=== PATIENT | female | born 1935 | race Caucasian/White ===

== ENCOUNTER → 2017-06-23 | Outpatient (CLI) | payer OTHER ==
[~2017-06-23] MED LIST: ASPIR 8181 MG PO; CYCLOBENZAPRINE10 MG PO; LISINOPRIL10 MG PO; LOSARTAN-HCTZ1 EAC1 PO; MECLIZINE HCL25 MG PO; METHOCARBAMOL750 MG PO; NORCO 5-325 TA1 EACH PO; OXYBUTYNIN CHLOR5 MG PO; TERBINAFINE HC250 MG PO; TYLENOL # 31 EA PO; ULTRAM50 MG PO; VERAPAMIL ER120 MG PO; VESICARE5 MG PO; ZOLPIDEM TARTRAT5 MG PO
--- NOTE | 2017-06-24 19:26 | Diagnostic Imaging Report ---
Octreoscan (Somatostatin-Receptor Imaging) Reason for exam: Recent abdominal surgery; malignant neuroendocrine tumor of colon Radiopharmaceutical: Indium-111 pentetreotide 6.6 mCi Report: Total body and tomographic images of the abdomen were obtained at 6 hours post injection of the radiopharmaceutical. Total body as well as tomographic images of the chest were obtained at 24 hours. Distribution of tracer activity is physiologic throughout the body. No abnormal accumulation of tracer is seen. Impression: No scan evidence of neuroendocrine tumor or metastases. Signed by: Dr. Idalia Abreu M.D. on 06/24/2017 7:23 PM
== END ==
LOC: NM 08:39
PROVIDERS: ATTEND Internal Medicine Hematology & Oncology
DX: D3A.8 Other benign neuroendocrine tumors (principal)
CPT/HCPCS: 78804

== ENCOUNTER 2017-11-17 15:43 | Emergency (ER) | payer OTHER ==
[~2017-11-17] VITALS: Ht 167.6 cm; Wt 82.1 kg
[2017-11-17] MEDS ORDERED: HYDROCODONE/APAP 10MG-325MG TAB PO ONE (16:45)
--- NOTE | 2017-11-17 17:07 | Diagnostic Imaging Report ---
EXAM: CT left hip WITHOUT contrast INDICATION: \S\PAIN INJECTION 2 WEEKS AGO, NOW PAIN \[id number] \S\[id number] COMPARISON: Pelvic x-ray dated 08/28/2012 TECHNIQUE: Left hip were scanned utilizing a multidetector helical scanner without administration of IV contrast. Coronal and sagittal reformations were obtained. Routine protocol was performed. IV CONTRAST: None COMPLICATIONS: None RADIATION DOSE: Total DLP: 234.5 mGy*cm Estimated effective dose: (DLP x 0.015 x size factor) mSv CTDIvol has been reviewed. It is below the limits set by the Radiation Protocol Committee (RPC). FINDINGS: No acute fracture or dislocation of the left hip. Degenerative changes, marked by joint space narrowing and marginal osteophytosis. There is no fluid collection identified to suggest abscess formation. Partially imaged pelvic phleboliths. Hysterectomy. Posterior medial proximal thigh nonspecific subcutaneous fat stranding (series 3, image 78) without collection. IMPRESSION: 1. No acute fracture or dislocation of the left hip. 2. Degenerative changes. 3. No discrete fluid collection or abscess visualized. If clinical symptoms persist, consider obtaining left hip MRI for better evaluation. Signed by: Dr. Luciano Arce MD on 11/17/2017 5:03 PM
[2017-11-17] MEDS ORDERED: NAPROXEN250 MG PO (17:50)
== END 2017-11-17 18:19 | disposition home or self-care (01) ==
LOC: ER 15:43
DX: M25.552 Pain in left hip (principal); M16.12 Unilateral primary osteoarthritis, left hip; R42 Dizziness and giddiness
CPT/HCPCS: 99283

== ENCOUNTER 2018-10-11 20:11 | Emergency (ER) | payer MEDICARE, OTHER ==
[~2018-10-11] VITALS: Ht 167.6 cm; Wt 83.9 kg
[~2018-10-11 20:11] MED LIST changes: +NAPROXEN250 MG PO
--- OUTSIDE RECORDS SUMMARY | 2018-10-11 20:16 | XMS REPORT | Encounter Summary ---
Author Organization Unknown Address [address] [place] [address] Phone [phone] Care Team Providers Care Linen Checker Name Role Phone Dr. Jung Boyce 3 [phone] Jenny Gong MD 3 [phone] Ajcinto Renataronaadelaide 107 [phone] Reason for Visit hypertension; lab follow-up Instructions 1. Hypertensive renal disease 2. Chronic kidney disease stage 3 3. Tachycardia electrocardiogram 4. Iron deficiency anemia ferrous sulfate 325 mg (65 mg iron) tablet 5. Chronic constipation docusate sodium 100 mg capsule 6. Lumbar radiculopathy XR, lumbosacral spine, 2 or 3 view 7. Inflammation of sacroiliac joint Discussion Note: None recorded. Patient educational handouts: No information available. Plan of Care Reminders Provider Appointments Est Patient 07/06/2018 3:00PM Jung Boyce Jr, MD Lab None recorded. Referral None recorded. Procedures None recorded. Surgeries None recorded. Imaging Electrocardiogram 06/08/2018 [facility] XR, Lumbosacral Spine, 2 or 3 View 06/08/2018 [facility]) [facility] Medications Name Start Date amlodipine 10 mg tablet Take 1 tablet every day by oral route for 90 days. docusate sodium 100 mg capsule Take 1 capsule every day by oral route for 90 days. ferrous sulfate 325 mg (65 mg iron) tablet Take 1 tablet twice a day by oral route for 90 days. lisinopril 20 mg tablet Take 1 tablet every day by oral route for 90 days. omeprazole 20 mg capsule,delayed release Take 1 capsule every day by oral route for 90 days. Vesicare 10 mg tablet Take 1 tablet every day by oral route. Medications Administered None recorded. Vitals Height Weight BMI Blood Pressure 5 ft 4 in 160 lbs 27.5 kg/m2 140/76 mm[Hg] Lab Results Date Name Specimen Result Interpretation Description Value Range Status Address 06/01/2018 CBC W/ Auto Diff Wbc 6.86 x10*3/L 3.98-10.04 x10*3/L Final [facility] [address] [facility] Rbc 4.88 10*12/L 3.93-5.22 10*12/L Final [facility] [address] [facility] Hemoglobin 13.10 g/dL 11.20-15.70 g/dL Final [facility] [address] [facility] Hematocrit 41.2 % 34.1-44.9 % Final [facility] [address] [facility] Mcv 84.4 fL 80.0-100.0 fL Final [facility] [address] [facility] Mch 26.8 pg 25.6-32.2 pg Final [facility] [address] [facility] Low Mchc 31.8 g/dL 32.2-35.5 g/dL Final [facility] [address] [facility] High RDW-SD 52.9 fL 36.4-46.3 fL Final [facility]: [address] [place] [address] Platelet Count 246.0 k/uL 182.0-369.0 k/uL Final [facility]: [address] [facility] High Mpv 11.9 fL 7.5-11.5 fL Final [facility] [address] [facility] Neut% 59.4 % 34.0-71.1 % Final [facility]: [address] [place] [address] Lymph% 28.9 % 19.3-51.7 % Final [facility] [address] [facility] Mon% 6.6 % 4.7-12.5 % Final [facility] [address] [facility] Eos% 4.8 % 0.7-5.8 % Final [facility] [address] [facility] Baso% 0.3 % 0.1-1.2 % Final [facility]: [address] [place] [address] Neut# 4.1 x10*3/L 1.6-6.1 x10*3/L Final [facility]: [address] [place] Lymph# 2.0 x10*3/L 1.2-3.7 x10*3/L Final [facility]: [address] [place] Mon# 0.5 x10*3/L 0.2-0.9 x10*3/L Final [facility]: [address] [place] Eos# 0.33 x10*3/L 0.04-0.36 x10*3/L Final [facility]: [address] [place] Baso# 0.02 x10*3/L 0.01-0.08 x10*3/L Final [facility]: [address] [place] 06/01/2018 CMP, Serum or Plasma Alt 18 U/L 0-55 U/L Final [facility]: [address] [place] [address] Ast 20 U/L 5-34 U/L Final [facility]: [address] [place] [address] High Bun 21.2 mg/dL 9.8-20.1 mg/dL Final [facility]: [address] Alk Phos 78 unit/L 40-150 unit/L Final [facility] [address] [facility] Glucose 99 mg/dL 70-99 mg/dL Final [facility]: [address] Albumin 4.2 g/dL 3.5-5.0 g/dL Final [facility]: [address] [facility] High Creatinine 1.19 mg/dL 0.57-1.11 mg/dL Final [facility]: [address] [place] [address] ABNORMAL eGFR Non- 43 mL/min/1.73m2 Final [facility]: [address] [facility] Total Bilirubin 0.3 mg/dL 0.2-1.2 mg/dL Final [facility]: [address] ABNORMAL eGFR - 52 mL/min/1.73m2 Final [facility]: [address] Sodium 143 mEq/L 136-145 mEq/L Final [facility]: [address] [place] [address], [place] Potassium 4.6 mEq/L 3.5-5.1 mEq/L Final [facility]: [address] [place] [address], [place] Chloride 107 mmol/L 98-107 mmol/L Final [facility]: [address] Total Protein 7.8 g/dL 6.4-8.3 g/dL Final [facility]: [address] High Calcium 10.3 mg/dL 8.4-10.2 mg/dL Final [facility]: [address] Co2 26.3 mmol/L 23.0-31.0 mmol/L Final [facility]: [address] Anion Gap 10 calc Final [facility]: [address] 06/01/2018 Lipid Panel, Serum Low Hdl 38 mg/dL 40-60 mg/dL Final [facility]: [address] High Triglyceride 205 mg/dL 0-149 mg/dL Final [facility]: [address] VLDL Calc. 41 mg/dL Final [facility]: [address] cholesterol/HDL Ratio 5.1 mg/dL Final [facility] Laboratory: [address] non-HDL Cholesterol Calc. 154 mg/dL 0-160 mg/dL Final [facility]: [address] Cholesterol 192 mg/dL 0-199 mg/dL Final [facility]: [address] LDL Calc. 113 mg/dL 0-130 mg/dL Final [facility]: [address] [place] [address], [place] 06/01/2018 TSH, Serum or Plasma Tsh 1.100 uIU/mL 0.350-4.940 uIU/mL Final [facility]: [address] 06/01/2018 Drug Screen, Urine Please Note: Final [facility]: [address] Normal Amphetamines (1000 NG/mL Screen) negative Final [facility]: [address] [place] [address], [place] Normal Barbiturates negative Final [facility]: [address], [place] Normal Benzodiazepines negative Final [facility]: [address], [place] Normal Cocaine Metabolites negative Final [facility]: [address], [place] Normal Marijuana Metabolites (100 NG/mL Screen) negative Final [facility]: [address], [place] Normal Methadone negative Final [facility]: [address], [place] Normal Methaqualone negative Final [facility] Laboratory: [address], [place] Normal Opiates negative Final [facility]: [address], [place] Normal Phencyclidine negative Final [facility] Laboratory: [address], [place] Normal Propoxyphene negative Final [facility]: [address], [place] Comment Final [facility]: [address], [place] 06/01/2018 Urinalysis, Dipstick Urine Color Color light yellow [facility] ([facility]) Hobby: [address], [place] Urine Color Appearance clear [facility] ([facility]) Hobby: [address] [place] Urine Color Glucose negative [facility] ([facility]) [address]obby: [address] [place] Urine Color Bilirubin small [facility] ([facility]) Hobby: [address], [place] Urine Color Ketones trace [facility] ([facility]) [address]: [address], [place] Urine Color Specific [place] 1.030 [facility] ([facility]) Hobby: [address], [place] Urine Color Blood negative [facility] ([facility]) [address]: [address], [place] Urine Color PH 5.0 [facility] ([facility]) [address]: [address] [place] Urine Color Protein trace [facility] ([facility]) Hobby: [address] [place] Urine Color Urobilinogen 0.2 [facility] ([facility]) Hobby: [address], [place] Urine Color Nitrites negative [facility] ([facility]) Hobby: [address], [place] Urine Color Leukocytes negative [facility] ([facility]) [facility]: [address] [facility] [facility] Cbc No observation recorded. Allergies Code Code System Name Reaction Severity Status Onset Penicillins Active Problems Name Status Onset Date Source Bladder Muscle Dysfunction - Overactive Active 06/01/2018 Hypertensive Renal Disease Active 06/02/2018 Chronic Kidney Disease Stage 3 Active 06/02/2018 Iron Deficiency Anemia Active 06/08/2018 Inflammation of Sacroiliac Joint Active 06/08/2018 Procedures Date Name Performed by 04/19/2017 Cancer Surgery Information not available Hysterectomy (Total) Information not available 06/08/2018 Electrocardiogram [facility] ([facility]) [address] [facility] [address] [place] [address] ([address]) 06/08/2018 XR, Lumbosacral Spine, 2 or 3 View [facility] ([facility]) [phone] [employer] [employer] [facility] [address] [place] [address] (Work [address]) Vaccine List Vaccine Type influenza, unspecified formulation 02/04/2015 01/30/2016 01/18/2017 12/30/2017 Social History Smoking Status Never Smoker Past Encounters 06/08/2018 Hypertensive Renal Disease; Chronic Kidney Disease Stage 3; Tachycardia; Iron Deficiency Anemia; Chronic Constipation; Lumbar Radiculopathy; Inflammation of Sacroiliac Joint Jung Boyce Jr, MD: [address] [phone], Ph. 06/01/2018 Adult Health Examination; Body Mass Index 25-29 - Overweight; Overweight; Advance Directive Discussed with Patient; Depression Screening; At Risk for Falls; Hypertensive Urgency; Benign Essential Hypertension; [id number] Inhibitor Adverse Reaction; Mixed Hyperlipidemia; Screening for Cardiovascular System Disease; Gastroesophageal Reflux Disease; Chronic Pain Syndrome Jung Boyce Jr, MD: [address] [phone], [place]. History of Present Illness Hypertension Reported By: Patient HPI: Severity: mild. Onset/Timing: gradual onset. Alleviating Factors: relieved with rest, medication. Self Care: not under emotional stress, blood pressure goal: 130/80. Associated Symptoms: no shortness of breath, no fatigue, no decline in exercise capacity Generic HPI Template Reported By: Patient Notes: Patient presents for routine lab follow up. Currently without new complaint. Chronic lumbosacral back pain. Review of Systems Comprehensive General Adult ROS Reported By: Patient Constitutional: Constitutional: no significant weight gain, no significant weight loss Cardiovascular: Cardiovascular: no chest pain, no shortness of breath when walking Respiratory: Respiratory: no cough, no wheezing, no shortness of breath Endocrine: Endocrine: no fatigue Physical Exam Musculoskeletal and Joint Exam, Neurology Exam, Cardiology Exam Reported By: Patient Musculoskeletal System: Musculoskeletal System normal range of motion in all peripheral joints. Right Hip: no tenderness. Left Hip: no tenderness. Lumbar / Lumbosacral Spine normal lordosis, tenderness on palpation, spasms. Soft Tissue/Bursa: tender point none Constitutional: Weight: well-nourished. Ambulation: ambulates independently Head: Size/Trauma: normocephalic Mental Status: Orientation oriented to person, oriented to place, oriented to time. Mood/Affect: appropriate mood, appropriate affect. Language: has spontaneous speech. Memory: recent memory intact, remote memory intact. Fund of Knowledge: current events, past history Lungs: Auscultation: clear, no wheezing, no rales, no rhonchi. Respiratory Effort: unlabored. Chest Exam: no thoracic deformity, no chest wall tenderness Heart: Rate And Rhythm: RRR. Heart Sounds: normal S1, physiologically split S2, no rub, no gallop, no click. Systolic Murmur: not heard. Diastolic Murmur: not heard. Extremities: no cyanosis, no edema, no peripheral signs of emboli Spine: Back: normal curvature Constitutional: General Appearance: well-developed, appears stated age. Level of Distress: comfortable Peripheral Pulses: Pulses: full and equal in all extremities except if noted. Radial Pulse: normal Skin: Inspection and Palpation: warm and dry. Nails: no clubbing
--- OUTSIDE RECORDS SUMMARY | 2018-10-11 20:16 | XMS REPORT | Continuity of Care Document ---
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 05/29/[address] Cardiomegaly 10/07/2017 [facility] Atherosclerotic heart disease of [place] coronary artery without angina pectoris 10/07/2017 [facility] Other specified postprocedural states 10/07/2017 [facility] Arthritis Active Problem 10/07/2017 [facility] Dizziness Active Problem 10/07/2017 [facility] HTN - Hypertension Active Problem 10/07/2017 [facility], [facility] [address] Bilateral low back pain Active Problem 10/07/2017 [facility] Cancer of colon Active Problem 10/07/2017 [facility] Lower extremity numbness Active Problem 10/07/2017 [facility] Bladder incontinence Active Problem 10/07/2017 [facility] Final: Malignant neoplasm of cecum 04/19/2017 [facility] MALIGNANT NEOPLASM OF CECUM Active [facility] MALIGNANT NEOPLASM OF COLON, UNSPECIFIED Active [facility] MALIGNANT NEOPLASM OF OVERLAPPING SITES Active [facility] Medications Medication Details Route Status Patient Instructions Ordering Provider Order Date Source naproxen 250 mg oral tablet 250 mg=1 tab, PO, BID, X 7 day, # 14 tab, 0 Refill(s) Active 04/16/2017 [facility] acetaminophen 500 mg oral tablet 500 mg=1 tab, PO, Q6H, X 14 day, # 56 tab, 0 Refill(s) Active 04/16/2017 [facility] Ativan 0.5 mg, 0.25 mL, Route: IV, Drug form: INJ, Q8H, Dosing Weight 68, kg, PRN as needed for anxiety, Start date: 04/15/17 20:59:00 [employer], Duration: 30 day, Stop date: 05/15/17 20:58:00 CSTNotes: (Same as: Ativan) No Longer Active 04/16/2017 [facility] Robitussin 100 mg/5 mL oral liquid 100 mg, 5 mL, Route: PO, Q4H, Dosing Weight 68, kg, PRN as needed for congestion, Start date: 04/15/17 20:59:00 CE[employer]END[employer] HEL[employer], Duration: 30 day, Stop date: 05/15/17 20:58:00 [employer] HEL[employer] Inactive 04/16/2017 [facility] Robitussin 100 mg, 5 mL, Route: PO, Drug Form: LIQ, Dosing Weight 68, kg, Q4H, PRN Cough/Congestion, Start date: 04/15/17 20:52:00 CE[employer]END[employer] HEL[employer], Duration: 30 day, Stop date: 05/15/17 20:51:00 CSTNotes: (Same as: Robitussin) No Longer Active 04/16/2017 [facility] VESICARE 5 mg, Route: PO, Drug form: TAB, Daily, Dosing Weight 68.835, kg, Start date: 04/15/17 9:00:00 CE[employer]END[employer] HELPER, Duration: 30 day, Stop date: 05/14/17 9:00:00 CE[employer]END[employer] HELPER No Longer Active 04/15/2017 [facility] Ditropan XL 5 mg, 1 tab, Route: PO, Drug form: ERTAB, Daily, Start date: 04/15/17 9:00:00 CE[employer] TENDER HEL[employer], Duration: 30 day, Stop date: 05/14/17 9:00:00 CSTNotes: (Same as: Ditropan XL) "Do Not Crush" No Longer Active 04/15/2017 [facility] Streptococcus pneumoniae serotype 1 capsular antigen diphtheria [id number] protein conjugate vaccine / Streptococcus pneumoniae serotype 14 capsular antigen diphtheria [id number] protein conjugate vaccine / Streptococcus pneumoniae serotype 18C capsular antigen d 0.5 mL, Route: IM, Drug Form: INJ, Daily, Start date: 04/15/17 9:00:00 CE[employer] TENDER HELPER, Duration: 1 doses or times, Stop date: 04/15/17 9:00:00 CSTNotes: Shake well prior to use (Same as: Prevnar 13) No Longer Active 04/15/2017 [facility] Enoxaparin 40 mg, 0.4 mL, Route: SUB-Q, Drug form: INJ, [id number], Dosing Weight 68.835, kg, Start date: 04/15/17 4:06:00 CELL TENDER HELPER, Stop date: 05/14/17 4:06:00 CSTNotes: (Same as: Lovenox) Inactive 04/15/2017 [facility] gabapentin 300 MG Oral Capsule 300 mg, 1 cap, Route: PO, Drug form: CAP, Q8H, Dosing Weight 68.835, kg, (CrCl > 60 ml/min), Start date: 04/15/17 0:00:00 CELL TENDER HELPER, Duration: 30 day, Stop date: 05/14/17 16:00:00 CSTNotes: (Same as: Neurontin) Inactive 04/15/2017 [facility] Famotidine 20 mg, 1 tab, Route: PO, Drug form: TAB, Q24H, Dosing Weight 68.835, kg, Start date: 04/14/17 21:00:00 CELL TENDER HELPER, Duration: 30 day, Stop date: 05/13/17 21:00:00 CSTNotes: (Same as: Pepcid) No Longer Active 04/15/2017 [facility] Methocarbamol 500 mg, 5 mL, Route: IV, Drug form: INJ, Q6H, Dosing Weight 68.835, kg, Start date: 04/14/17 18:00:00 CELL TENDER HELPER, Duration: 30 day, Stop date: 05/14/17 12:00:00 CSTNotes: (Same as:Robaxin) No Longer Active 04/15/2017 [facility] Ofirmev 500 mg, 1 tab, Route: PO, Drug form: TAB, Q6H, Dosing Weight 68.835, kg, for > or=50 kg, Start date: 04/14/17 18:00:00 CELL TENDER HELPER, Stop date: 05/14/17 12:00:00 CSTNotes: Max acetaminophen 4000 mg/day (4 gm/day). (Same as: Tylenol Extra Strength) No Longer Active 04/15/2017 [facility] Entereg 12 mg, 1 cap, Route: PO, Drug form: CAP, BID, Dosing Weight 68.835, kg, Start date: 04/14/17 17:00:00 CELL TENDER HELPER, Duration: 7 day, Stop date: 04/21/17 9:00:00 CSTNotes: Same as: Entereg Maximum of 15 doses Alert Restricted medication Alvimopan (Entergen) order form must be completed prior to dispensing. No Longer Active 04/14/2017 [facility] Naproxen 250 mg, 1 tab, Route: PO, Drug form: TAB, BID, Dosing Weight 68.835, kg, Start date: 04/14/17 17:00:00 CELL TENDER HELPER, Duration: 30 day, Stop date: 05/14/17 9:00:00 CSTNotes: (Same as: Naprosyn) Take with food. No Longer Active 04/14/2017 [facility] glycopyrrolate (ANES) Route: IV, Drug form: INJ, ONCE, Stop date: 04/14/17 16:38:00 CELL TENDER HELPER Inactive 04/14/2017 [facility] metroNIDAZOLE (ANES) Route: IV, Drug form: INJ, ONCE, Stop date: 04/14/17 16:38:00 CELL TENDER HELPER Inactive 04/14/2017 [facility] neostigmine (ANES) Route: IV, Drug form: INJ, ONCE, Stop date: 04/14/17 16:38:00 CELL TENDER HELPER Inactive 04/14/2017 [facility] dexamethasone (ANES) Route: IV, Drug form: INJ, ONCE, Stop date: 04/14/17 16:20:00 CELL TENDER HELPER Inactive 04/14/2017 [facility] ondansetron (ANES) Route: IV, Drug form: INJ, ONCE, Stop date: 04/14/17 16:20:00 CELL TENDER HELPER Inactive 04/14/2017 [facility] acetaminophen (ANES) Route: IV, Drug form: INJ, ONCE, Stop date: 04/14/17 16:20:00 CELL TENDER HELPER Inactive 04/14/2017 [facility] Dilaudid 1 mg, 0.5 tab, Route: PO, Drug form: TAB, Q3H, Dosing Weight 68.835, kg, PRN Pain Score 7-10, Start date: 04/14/17 16:06:00 CELL TENDER HELPER, Duration: 30 day, Stop date: 05/14/17 16:05:00 CSTNotes: (Same as: Dil audid) No Longer Active 04/14/2017 [facility] Lidocaine 2 gm, 250 mL, Rate: Infuse as directed, Dosing Weight 68.835, kg, Route: IV, Total Volume: 250 mL, Start date: 04/14/17 16:06:00 CELL TENDER HELPER, Stop date: 04/14/17 17:00:00 CELL TENDER HELPER, Replace Every: 24 hrNotes: Remington ix final conc=8 mg/ml (Same as: Xylocaine Premix) Inactive 04/14/2017 [facility] Ondansetron 4 mg, 2 mL, Route: IVP, Drug form: INJ, Q6H, Dosing Weight 68.835, kg, PRN Nausea & Vomiting, Start date: 04/14/17 16:06:00 CELL TENDER HELPER, Duration: 30 day, Stop date: 05/14/17 16:05:00 CSTNotes: (Same as: Barrie) MEDICATION WASTE Product Size: 4 mg Product Wasted: ___ mg No Longer Active 04/14/2017 [facility] Diphenhydramine 25 mg, 1 tab, Route: PO, Drug form: TAB, Bedtime, Dosing Weight 68.835, kg, PRN Insomnia, Start date: 04/14/17 16:06:00 CELL TENDER HELPER, Duration: 30 day, Stop date: 05/14/17 16:05:00 CELL TENDER HELPER No Longer Active 04/14/2017 [facility] Calcium Chloride 0.0014 MEQ/ML / Potassium Chloride 0.004 MEQ/ML / Sodium Chloride 0.103 MEQ/ML / Sodium Lactate 0.028 MEQ/ML Injectable Solution 1,000 mL, Rate: 50 ml/hr, Infuse over: 20 hr, Route: IV, Dosing Weight 68.835 kg, Total Volume: 1,000, Start date: 04/14/17 16:06:00 CELL TENDER HELPER, Duration: 30 day, Stop date: 05/14/17 16:05:00 CELL TENDER HELPER, 1.82, m2 No Longer Active 04/14/2017 [facility] ePHEDrine (ANES) Route: IV, Drug form: INJ, ONCE, Stop date: 04/14/17 14:50:00 CELL TENDER HELPER Inactive 04/14/2017 [facility] propofol (ANES) Route: IV, Drug form: INJ, ONCE, Stop date: 04/14/17 14:35:00 CELL TENDER HELPER Inactive 04/14/2017 [facility] lidocaine (ANES) Route: IV, Drug form: INJ, ONCE, Stop date: 04/14/17 14:35:00 CELL TENDER HELPER Inactive 04/14/2017 [facility] ketAMINE (ANES) Route: IV, Drug form: INJ, ONCE, Stop date: 04/14/17 14:35:00 CELL TENDER HELPER Inactive 04/14/2017 [facility] ceFAZolin (ANES) Route: IV, Drug form: INJ, ONCE, Stop date: 04/14/17 14:35:00 CELL TENDER HELPER Inactive 04/14/2017 [facility] rocuronium (ANES) Route: IV, Drug form: INJ, ONCE, Stop date: 04/14/17 14:35:00 CELL TENDER HELPER Inactive 04/14/2017 [facility] gabapentin 300 MG Oral Capsule 300 mg, Route: PO, Drug form: CAP, ONCE, Dosing Weight 68.835, kg, Start date: 04/14/17 13:49:00 CELL TENDER HELPER, Stop date: 04/14/17 13:49:00 CELL TENDER HELPER Inactive 04/14/2017 [facility] ketAMINE (ANES) 10 mg Route: IV, Drug form: INJ, Start date: 04/14/17 13:46:00 CELL TENDER HELPER, Stop date: 04/14/17 14:46:00 CELL TENDER HELPER Inactive 04/14/2017 [facility] dexmedetomidine (ANES) 200 microgram Route: IV, Drug form: INJ, Start date: 04/14/17 13:36:00 CELL TENDER HELPER, Stop date: 04/14/17 14:36:00 CELL TENDER HELPER Inactive 04/14/2017 [facility] Sodium Chloride 0.9% IV (ANES) 1000 mL Route: IV, Total Volume: 1,000, Start date: 04/14/17 13:26:00 CELL TENDER HELPER, Stop date: 04/14/17 14:26:00 CELL TENDER HELPER Inactive 04/14/2017 [facility] Lactated Ringers Injection IV (ANES) 1000 mL Route: IV, Total Volume: 1,000, Start date: 04/14/17 13:17:00 CELL TENDER HELPER, Stop date: 04/14/17 14:17:00 CELL TENDER HELPER Inactive 04/14/2017 [facility] Tylenol 500 mg, Route: PO, Drug form: TAB, ONCE, Dosing Weight 68.835, kg, Priority: STAT, Start date: 04/14/17 12:23:00 CELL TENDER HELPER, Stop date: 04/14/17 12:23:00 CELL TENDER HELPER Inactive 04/14/2017 [facility] Entereg 12 mg, Route: PO, ONCE, Dosing Weight 68.835, kg, Start date: 04/14/17 12:20:00 CELL TENDER HELPER, Stop date: 04/14/17 12:20:00 CELL TENDER HELPER Inactive 04/14/2017 [facility] Tylenol 500 mg, Route: PO, Drug form: TAB, ONCE, Dosing Weight 68.835, kg, PRN Pain Score 1-3, Priority: STAT, Start date: 04/14/17 12:19:00 CELL TENDER HELPER Inactive 04/14/2017 [facility] Albuterol 0.833 MG/ML / Ipratropium [place] 0.167 MG/ML Inhalant Solution 3 mL, Route: NEB, Drug Form: SOLN, Dosing Weight 68.835, kg, ONCE, STAT, Start date: 04/14/17 12:01:00 CELL TENDER HELPER, Stop date: 04/14/17 12:01:00 CSTNotes: (Same as: Duoneb) Inactive 04/14/2017 [facility] Calcium Chloride 0.0014 MEQ/ML / Potassium Chloride 0.004 MEQ/ML / Sodium Chloride 0.103 MEQ/ML / Sodium Lactate 0.028 MEQ/ML Injectable Solution 1,000 mL, Rate: 25 ml/hr, Infuse over: 40 hr, Route: IV, Dosing Weight 68.835 kg, Total Volume: 1,000, Start date: 04/14/17 12:01:00 CELL TENDER HELPER, Duration: 12 hr, Stop date: 04/15/17 0:00:00 CELL TENDER HELPER, 1.82, m2 Inactive 04/14/2017 [facility] Naproxen 250 mg, 1 tab, Route: PO, Drug form: TAB, ONCE, Dosing Weight 68.835, kg, Priority: STAT, Start date: 04/14/17 12:00:00 CELL TENDER HELPER, Stop date: 04/14/17 12:00:00 CSTNotes: (Same as: Naprosyn) Take with food. Inactive 04/14/2017 [facility] Robaxin 500 mg, 1 tab, Route: PO, Drug form: TAB, ONCE, Dosing Weight 68.835, kg, Priority: STAT, Start date: 04/14/17 11:50:00 CELL TENDER HELPER, Stop date: 04/14/17 11:50:00 CSTNotes: (Same as:Robaxin) Inactive 04/14/2017 [facility] Exparel 20 mL, Route: InFILtration(local), Drug Form: INJ, Dosing Weight 68.835, kg, ONCALL, For Hemorrhoidectomy, Start date: 04/14/17 11:00:00 CELL TENDER HELPER, Duration: 1 day, Stop date: 04/15/17 10:59:00 CSTNotes: (Same as: Exparel) NOT FOR IV use Postoperative analgesia: Infiltration (local): Dose is based on surgical site and volume required to cover the area (in general, the maximum total dose is 266 mg). Bunionectomy: 7 mL into the tissues surrounding the osteotomy and 1 mL into the subcutaneous tissue of the surgical site (total dose=8 mL [106 mg]) Hemorrhoidectomy: 30 mL (20 mL vial diluted with 10 mL NS) divided and administered as 6 injections of 5 mL each (total dose=30 mL [266 mg]) No Longer Active 04/14/2017 [facility] Dexmedetomidine 200 microgram, 2 mL, Rate: Titrate, Start Dose: 0.2 microgram/kg/hr, Titration: 0.1 microgram/kg/hr every 30 min, Goal(s): RASS, Max Dose: 1.5 microgram/kg/hr, Route: IV, Dosing Weight 68.835 kg, Total Volume: 50, Start date: 04/14/17 10:59:00 CELL TENDER HELPER, Du...Notes: Not for use > 24 hours No Longer Active 04/14/2017 [facility] Unknown Home Medication Refill(s) 0 Active 04/07/2017 [facility] Naproxen sodium 220 MG Oral Tablet [Aleve] 220 mg=1 tab, PO, Q8H, PRN Pain, # 30 tab, 0 Refill(s) No Longer Active 04/07/2017 [facility] solifenacin succinate 5 MG Oral Tablet [VESICARE] 5 mg=1 tab, PO, Daily, # 30 tab, 0 Refill(s) Active 04/07/2017 [facility] lisinopril 10 mg oral tablet 10 mg=1 tab, PO, Daily, # 30 tab, 0 Refill(s) Active 04/07/2017 [facility] Allergies, Adverse Reactions, Alerts Substance Category Reaction Severity Reaction type Status Date Reported Comments Source penicillins Assertion Drug allergy Active [facility] Immunizations Immunization Date Given Site Status Last Updated Comments Source pneumococcal 13-valent vaccine 04/16/2017 Not Given [facility] Results Order Name Results Value Reference Range Date Interpretation Comments Source PET CT Colorectal CA initial staging PET CT Colorectal CA initial staging PET CT Colorectal CA initial staging TECHNIQUE: 14.4 mCis of FDG were administered intravenously and a series of overlapping images were obtained from the skull base to the proximal thighs utilizing a PET/CT hybrid device. The CT was utilized for attenuation correction and anatomic correlation and not as an independent diagnostic study. BLOOD GLUCOSE: 98 mg/dl COMPARISON: None CLINICAL HISTORY: C18.9 Malignant neoplasm of colon, unspecified, C18.8 Malignant neoplasm of overlapping sites of colon - LIY=285.72 mGy*cm, CTDIvol=7.95 mGy; FINDINGS: HEAD AND NECK: No abnormal activity is visualized CHEST: Moderate cardiomegaly. Coronary artery calcifications. ABDOMEN AND PELVIS: Postoperative changes related to right hemicolectomy are evident. No abnormal activity is noted at the bowel anastomotic site in the right side of the abdomen. No local or retroperitoneal lymphadenopathy is noted. No FDG avid mass is visualized in the liver. Physiologic activity is visualized in the solid organs, genitourinary tract and gastrointestinal tract. MUSCULOSKELETAL: No abnormal activity is visualized IMPRESSION: Postoperative changes related to right hemicolectomy are evident. No PET/CT evidence for residual local disease or distant metastasis. SL:[id number] 07/01/2017 - - Read by: Russ Morales MD Dictated Date/time: 07/02/17 08:59 Electronically Signed by: Russ Morales MD 07/02/17 09:11 FINAL REPORT [facility] ELECTROLYTES AGAP 12.6 meq/L 10.0 - 20.0 04/15/2017 [facility] ELECTROLYTES eGFR 39 mL/min/1.73m2 04/15/2017 Result Comment: The eGFR is calculated using the CKD-EPI formula. In most young, healthy individuals the eGFR will be >90 mL/min/1.73m2. The eGFR declines with age. An eGFR of 60-89 may be normal in some populations, particularly the elderly, for whom the CKD-EPI formula has not been extensively validated. Use of the eGFR is not recommended in the following populations: Individuals with unstable creatinine concentrations, including patients and those with serious co-morbid conditions. Patients with extremes in muscle mass or diet. The data above are obtained from the National Kidney Disease Education Program (NKDEP) which additionally recommends that when the eGFR is used in patients with extremes of body mass index for purposes of drug dosing, the eGFR should be multiplied by the estimated BMI. [facility] ELECTROLYTES Calcium Lvl 8.4 mg/dL 8.5 - 10.5 04/15/2017 [facility] ELECTROLYTES CO2 24 meq/L 24 - 32 04/15/2017 [facility] ELECTROLYTES Sodium Lvl 140 meq/L 135 - 145 04/15/2017 [facility] ELECTROLYTES Creatinine Lvl 1.27 mg/dL 0.50 - 1.40 04/15/2017 [facility] ELECTROLYTES Potassium Lvl 4.6 meq/L 3.5 - 5.1 04/15/2017 [facility] ELECTROLYTES Chloride Lvl 108 meq/L 95 - 109 04/15/2017 [facility] ELECTROLYTES Glucose Lvl 147 mg/dL 70 - 99 04/15/2017 [facility] ELECTROLYTES BUN 23 mg/dL 7 - 22 04/15/2017 [facility] HEMATOLOGY Hct 28.3 % 36.0 - 48.0 04/15/2017 [facility] HEMATOLOGY Hgb 9.0 g/dL 12.0 - 16.0 04/15/2017 [facility] BLOOD BANK RESULTS ABO/Rh B POS 04/07/2017 [facility] BLOOD BANK RESULTS Antibody Scrn Negative (04/07/17 4:07 PM) 04/07/2017 [facility] CHEM PANEL Bili Total 0.3 mg/dL 0.2 - 1.3 04/07/2017 [facility] CHEM PANEL Bili Direct null 0.0 - 0.3 04/07/2017 [facility] CHEM PANEL Alk Phos 88 unit/L 39 - 136 04/07/2017 [facility] CHEM PANEL AST 16 unit/L 0 - 37 04/07/2017 [facility] CHEM PANEL Albumin Lvl 3.7 g/dL 3.5 - 5.0 04/07/2017 [facility] CHEM PANEL Total Protein 7.8 g/dL 6.4 - 8.4 04/07/2017 [facility] CHEM PANEL ALT 18 unit/L 0 - 65 04/07/2017 [facility] CHEM PANEL A/G Ratio 0.9 0.7 - 1.6 04/07/2017 [facility] CHEM PANEL Bili Indirect null 0.0 - 1.0 04/07/2017 [facility] CHEM PANEL Globulin 4.1 g/dL 2.7 - 4.2 04/07/2017 [facility] CHEM PANEL eGFR 57 mL/min/1.73m2 04/07/2017 Result Comment: The eGFR is calculated using the CKD-EPI formula. In most young, healthy individuals the eGFR will be >90 mL/min/1.73m2. The eGFR declines with age. An eGFR of 60-89 may be normal in some populations, particularly the elderly, for whom the CKD-EPI formula has not been extensively validated. Use of the eGFR is not recommended in the following populations: Individuals with unstable creatinine concentrations, including patients and those with serious co-morbid conditions. Patients with extremes in muscle mass or diet. The data above are obtained from the National Kidney Disease Education Program (NKDEP) which additionally recommends that when the eGFR is used in patients with extremes of body mass index for purposes of drug dosing, the eGFR should be multiplied by the estimated BMI. [facility] CHEM PANEL Sodium Lvl 144 meq/L 135 - 145 04/07/2017 [facility] CHEM PANEL Potassium Lvl 4.0 meq/L 3.5 - 5.1 04/07/2017 [facility] CHEM PANEL BUN 19 mg/dL 7 - 22 04/07/2017 [facility] CHEM PANEL Creatinine Lvl 0.94 mg/dL 0.50 - 1.40 04/07/2017 [facility] CHEM PANEL Glucose Lvl 87 mg/dL 70 - 99 04/07/2017 [facility] CHEM PANEL Chloride Lvl 110 meq/L 95 - 109 04/07/2017 [facility] CHEM PANEL CO2 28 meq/L 24 - 32 04/07/2017 [facility] CHEM PANEL Calcium Lvl 8.7 mg/dL 8.5 - 10.5 04/07/2017 [facility] CHEM PANEL AGAP 10.0 meq/L 10.0 - 20.0 04/07/2017 [facility] HEMATOLOGY INR 1.08 0.85 - 1.17 04/07/2017 [facility] HEMATOLOGY PT 14.0 s 12.0 - 14.7 04/07/2017 [facility] HEMATOLOGY PTT 35.4 s 22.9 - 35.8 04/07/2017 [facility] HEMATOLOGY Eosinophils 3.7 % 0.0 - 4.0 04/07/2017 [facility] HEMATOLOGY Lymphocytes # 2.2 K/CMM 1.0 - 5.5 04/07/2017 [facility] HEMATOLOGY Basophils 0.5 % 0.0 - 1.0 04/07/2017 [facility] HEMATOLOGY Segs-Bands # 4.1 K/CMM 1.5 - 8.1 04/07/2017 [facility] HEMATOLOGY Eosinophils # 0.3 K/CMM 0.0 - 0.5 04/07/2017 [facility] HEMATOLOGY Monocytes # 0.5 K/CMM 0.0 - 0.8 04/07/2017 [facility] Microcyte 1+ *ABN* (04/07/17 4:07 PM) None Seen 04/07/2017 [facility] Monocytes 6.6 % 2.0 - 12.0 04/07/2017 [facility] Lymphocytes 31.5 % 20.0 - 40.0 04/07/2017 [facility] Segs 57.7 % 45.0 - 75.0 04/07/2017 [facility] RDW 16.4 % 11.5 - 14.5 04/07/2017 [facility] MPV 8.7 fL 7.4 - 10.4 04/07/2017 [facility] Platelet 212 K/CMM 133 - 450 04/07/2017 [facility] MCHC 33.1 g/dL 32.0 - 36.0 04/07/2017 [facility] MCH 25.6 pg 27.0 - 31.0 04/07/2017 [facility] Hct 33.2 % 36.0 - 48.0 04/07/2017 [facility] MCV 77.1 fL 80.0 - 98.0 04/07/2017 [facility] Hgb 11.0 g/dL 12.0 - 16.0 04/07/2017 [facility] RBC 4.30 M/CMM 4.20 - 5.40 04/07/2017 [facility] WBC 7.1 K/CMM 3.7 - 10.4 04/07/2017 [facility] TUMOR MARKERS CEA 5.7 ng/mL 0.0 - 3.0 04/07/2017 [facility] Chest 2 views DX Chest 2 views DX Patient Name: VINCE ROJAS : 1935; Age: 81 years y/o Female MR: [id number] Study: Chest 2 views DX 04/07/2017 3:42 PM [employer]END[employer] HELPER Ordering Physician: MD Chilo Callejas MD Clinical Indication: Coughing; Comparison: None 2 views chest The lungs are clear. Heart size top normal. No overt congestive heart failure or pulmonary edema. No pleural effusion or pneumothorax. Degenerative changes within the dorsal spine and shoulders. IMPRESSION: No acute findings. SL: [id number] 04/07/2017 - - Read by: Sal Barrett MD Dictated Date/time: 04/07/17 16:39 Electronically Signed by: Sal Barrett MD 04/07/17 16:40 FINAL REPORT [facility] Spine lumbar wo contrast MRI Spine lumbar wo contrast MRI CLINICAL HISTORY: M47.816 Spondylosis without myelopathy or radiculopathy, lumbar region AGE: 79 years GENDER: Female TECHNIQUE: Multiplanar, multisequence MRI of the lumbar spine was performed without gadolinium based contrast. COMPARISON: Lumbar spine radiographs 07/15/2012 FINDINGS: The L5 vertebral body is defined as the lumbar vertebral bodies from which the iliolumbar ligament arises. There is no MR evidence of fracture. There is grade 1 anterolisthesis of L4 on L5 measuring 3 mm, not significantly changed since 2012. Mild multilevel disc desiccation is seen. The conus medullaris terminates at L1-L2. The visualized portions of the spinal cord are unremarkable. At T12-L1, there is mild diffuse disc bulge without significant spinal canal narrowing or neural foraminal stenosis. At L1-L2, there is moderate diffuse disc bulge without spinal canal stenosis or neural foraminal narrowing. At L2-L3, there is diffuse disc bulge with superimposed left paramedian broad- based disc herniation. This impinges on the exiting L3 nerve root. No significant spinal canal stenosis is seen. At L3-L4, there is mild disc bulge with superimposed left foraminal disc protrusion. This protrusion abuts the descending L3 nerve root on the left. There is no significant spinal canal stenosis at this level. At L4-L5, there is moderate to severe ligamentum flavum hypertrophy which in conjunction with grade 1 anterolisthesis and superimposed moderate diffuse disc bulge results in severe spinal canal stenosis. Spinal canal measures 5 mm in AP dimension at this level. There is moderate bilateral neural foraminal narrowing at this level. At L5-S1 there is moderate bilateral facet arthropathy with superimposed mild diffuse disc bulge. No significant spinal canal stenosis is seen. There is borderline bilateral neural foraminal narrowing. IMPRESSION: Multilevel degenerative disc disease with severe spinal canal stenosis at L4-L5. Multilevel neural foraminal narrowing and nerve root impingement, greater on the left as described above. 06/05/2015 - - Read by: Adam Cbaello MD Dictated Date/time: 06/05/15 16:13 Electronically Signed by: Adam Cabello MD 06/05/15 16:29 FINAL REPORT [facility] Vital Signs Vital Sign Value Date Comments Source Temperature Oral (F) 97.9 F 04/16/2017 [facility] Heart Rate 75 04/16/2017 [facility] Respitory Rate 16 04/16/2017 [facility] Systolic (mm Hg) 130 04/16/2017 [facility] Diastolic (mm Hg) 70 04/16/2017 [facility] Respitory Rate 16 04/16/2017 [facility] Systolic (mm Hg) 134 04/16/2017 [facility] Diastolic (mm Hg) 73 04/16/2017 [facility] Heart Rate 79 04/16/2017 [facility] Temperature Oral (F) 97.8 F 04/16/2017 [facility] Respitory Rate 14 04/16/2017 [facility] Heart Rate 79 04/16/2017 [facility] Systolic (mm Hg) 125 04/16/2017 [facility] Diastolic (mm Hg) 75 04/16/2017 [facility] Temperature Oral (F) 98.1 F 04/16/2017 [facility] BMI Calculated 25.73 04/14/2017 [facility] Weight 68 04/14/2017 [facility] Height 162.56 cm 04/14/2017 [facility] Weight 68.835 04/07/2017 [facility] BMI Calculated 23.77 04/07/2017 [facility] Height 170.18 cm 04/07/2017 [facility] Encounters Location Location Details Encounter Type Encounter Number Reason For Visit Attending Provider ADM Date DC Date Status Source [facility] [id number] Narayan Urbina 06/05/2015 06/06/2015 [facility] [place] [facility] Inpatient [id number] Chilo Askenasy 04/14/2017 04/16/2017 [facility] Outpatient [id number] Vince Sccorrineos 07/01/2017 07/02/2017 [facility] Procedures Procedure Code Date Perfomer Comments Source Arthroscopy of knee with lateral meniscectomy [id number] [facility] Cataract extraction and insertion of intraocular lens [id number] [facility] Total hysterectomy [id number] [facility]
--- OUTSIDE RECORDS SUMMARY | 2018-10-11 20:16 | XMS REPORT | Encounter Summary ---
Author Organization Unknown Address [address] [place] [address] Phone [phone] Care Team Providers Care Education Courses Sales Representative Name Role Phone Dr. Jung Boyce 3 [phone] Jenny Gong MD 3 [phone] Reason for Visit Quality BMI DEPRESSION FALL; AWV Annual Wellness Visit Female (VFP); hypertension; heartburn/indigestion Instructions 1. Adult health examination 2. Body mass index 25-29 - overweight 3. Overweight 4. Advance directive discussed with patient advance care planning: care instructions 5. Depression screening 6. At risk for falls 7. Hypertensive urgency clonidine HCl 0.1 mg tablet 8. Benign essential hypertension urinalysis, dipstick CBC w/ auto diff CMP, serum or plasma TSH, serum or plasma amlodipine 10 mg tablet 9. Bfwcmknodbs-yfovyaqjvi-bhymvb inhibitor adverse reaction 10. Mixed hyperlipidemia lipid panel, serum 11. Screening for cardiovascular system disease 12. Gastroesophageal reflux disease omeprazole 20 mg capsule,delayed release 13. Chronic pain syndrome drug screen, urine Discussion Note: None recorded. Plan of Care Patient Instructions Screening Recommendations 1. Vaccines Pneumococcal: discussed today and information sent with patient in their Annual Wellness health folder Influenza: discussed today and information sent with patient in their Annual Wellness health folder Shingles: discussed today and information sent with patient in their Annual Wellness health folder Tetanus: discussed today and information sent with patient in their Annual Wellness health folder 2. Mammography Screening: No screening necessary 3. Colorectal cancer Screening Colonoscopy: No screening necessary Fecal Occult Blood: No screening necessary 4. Bone Mass Measurement: No screening necessary 5. Pap test / Pelvic Exam Screening: No screening necessary 6. Eye Exam Screening: discussed today 7. Cholesterol Screening: discussed today 8. Diabetes Screening: discussed today It was good to see you in the office today for your Medicare Annual Wellness Visit. You have been provided some information on healthy nutrition, including a diet rich in fruits and vegetables, minimizing simple carbohydrates, salt, and saturated fats. I want to encourage regular cardiovascular exercise such as walking at least 30 minutes daily, 5 times per week. Please remember to schedule any preventive health measures that we talked about today. You have also been provided education on fall prevention and community- based lifestyle interventions to help reduce health risks and promote healthy living in your Annual Wellness folder. Reminders Provider Appointments Return to Office on or around 06/08/2018 Jung Boyce Jr, MD Lab Urinalysis, Dipstick 06/01/2018 [facility] ([facility]) Hobby CBC W/ Auto Diff 06/01/2018 [facility] CMP, Serum or Plasma 06/01/2018 [facility] TSH, Serum or Plasma 06/01/2018 [facility] Lipid Panel, Serum 06/01/2018 [facility] Drug Screen, Urine 06/01/2018 [facility] Referral None recorded. Procedures None recorded. Surgeries None recorded. Imaging None recorded. Medications Name Start Date amlodipine 10 mg [...] BMI Blood Pressure 5 ft 4 in 159 lbs 27.3 kg/m2 (1) 204/102 mm[Hg] (2) 108/70 mm[Hg] Lab Results None recorded. Allergies Code Code System Name Reaction Severity Status Onset Penicillins Active Problems Name Status Onset Date Source Benign Essential Hypertension Active 06/01/2018 Bladder Muscle Dysfunction - Overactive Active 06/01/2018 Procedures Date Name Performed by 04/19/2017 Cancer Surgery Information not available Hysterectomy (Total) Information not available Vaccine List None recorded. Social History Smoking Status Never Smoker Past Encounters 06/01/2018 Adult Health Examination; Body Mass Index 25-29 - Overweight; Overweight; Advance Directive Discussed with Patient; Depression Screening; At Risk for Falls; Hypertensive Urgency; Benign Essential Hypertension; Bdhmrkinybz-uncjnjirwe-hongzv Inhibitor Adverse Reaction; Mixed Hyperlipidemia; Screening for Cardiovascular System Disease; Gastroesophageal Reflux Disease; Chronic Pain Syndrome Jung Boyce Jr, MD: [address] [facility], [address], [place] [address], Ph. History of Present Illness Hypertension Reported By: Patient HPI: Severity: intense. Onset/Timing: gradual onset. Alleviating Factors: relieved with rest, medication. Self Care: not under emotional stress, blood pressure goal: 130/80. Associated Symptoms: no shortness of breath, no fatigue, no decline in exercise capacity Mini Cog Reported By: Patient Hyperlipidemia Reported By: Patient HPI: Type of hyperlipidemia: combined, hypercholesterolemia. Duration: chronic. Current Therapy: currently taking:. Complications: no coronary artery disease Abdominal Pain Reported By: Patient Abdominal Pain: Quality: pain, tender. Severity: mild. Onset/Timing: worse. Context: ; No recent travel, antibiotics or sick contacts. Modifying Factors: nothing gives relief. Associated Symptoms: no fever, no chills, no blood in the urine, no vomiting, no change in stool Review of Systems:ROS as noted in the HPI Review of Systems Comprehensive General Adult ROS Reported By: Patient Constitutional: Constitutional: no significant weight gain, no significant weight loss Cardiovascular: Cardiovascular: no chest pain, no shortness of breath when walking Respiratory: Respiratory: no cough, no wheezing, no shortness of breath Gastrointestinal: Gastrointestinal: nausea, GERD Endocrine: Endocrine: no fatigue Physical Exam Brief Abdominal Pain Exam, Cardiology Exam Reported By: Patient Constitutional: General Appearance: well-developed, well-nourished, healthy-appearing, alert, oriented, NAD, appears stated age Cardiovascular: Heart Auscultation: S1 present, S2 present, no murmurs, no click, physiologically split S2, no rub, no gallop. Rate And Rhythm: regular. Systolic Murmur: not heard. Diastolic Murmur: not heard. Extremities: no cyanosis, no edema, no peripheral signs of emboli Lungs: Lungs: clear to auscultation bilaterally, no wheezing, no crackles. Respiratory Effort: unlabored. Chest Exam: normal curvature, no thoracic deformity, no chest wall tenderness. Auscultation: clear, no rhonchi Abdomen: Inspection and Palpation: soft, bowel sounds 4 quadrants, no tenderness, non-distended Peripheral Pulses: Pulses: full and equal in all extremities except if noted. Radial Pulse: normal Skin: Inspection and Palpation: warm and dry. Nails: no clubbing
--- OUTSIDE RECORDS SUMMARY | 2018-10-11 20:16 | XMS REPORT | Encounter Summary ---
Author Organization Unknown Address [address] [place] [address] Phone [phone] Care Team Providers Care Head Charrer Name Role Phone Dr. Jung Boyce 3 [phone] Jenny Gong MD 3 [phone] Reason for Visit Quality BMI DEPRESSION FALL; [...] or plasma amlodipine 10 mg tablet 9. Oymghjdqovl-ipuosdwycd-lozols inhibitor adverse reaction 10. Mixed hyperlipidemia lipid panel, serum 11. Screening for cardiovascular system disease 12. Gastroesophageal reflux disease omeprazole 20 mg capsule,delayed release 13. Chronic pain syndrome drug screen, urine 14. Bladder muscle dysfunction - overactive Discussion Note: None recorded. Plan of Care [...] Boyce Jr, MD Lab Urinalysis, Dipstick 06/01/2018 [facility] ([facility] Hobby CBC W/ Auto Diff 06/01/2018 [facility] CMP, Serum or Plasma 06/01/2018 [facility] TSH, Serum or Plasma 06/01/2018 [facility] Lipid Panel, Serum 06/01/2018 [facility] Drug Screen, Urine 06/01/2018 [facility] Referral None recorded. Procedures None recorded. [...] for Falls; Hypertensive Urgency; Benign Essential Hypertension; Rqgildgkfbu-zjhmdgmryb-oabfrv Inhibitor Adverse Reaction; Mixed Hyperlipidemia; Screening for Cardiovascular System Disease; Gastroesophageal Reflux Disease; Chronic Pain Syndrome; Bladder Muscle Dysfunction - Overactive Jung Boyce Jr, MD: [address] [facility], [address], [place] [address], Ph. History of Present Illness Hypertension Reported [...]
--- OUTSIDE RECORDS SUMMARY | 2018-10-11 20:16 | XMS REPORT | Encounter Summary ---
Author Organization Unknown Address [address] [place] [address] Phone [phone] Care Team Providers Care Reception Clerk Name Role Phone Dr. Jung Boyce 3 [phone] Jenny Gong MD 3 [phone] Reason for Visit Quality BMI DEPRESSION FALL; [...] or plasma amlodipine 10 mg tablet 9. Wjtwzfeflpn-pdrherkwjm-lfqhha inhibitor adverse reaction 10. Mixed hyperlipidemia lipid [...] Boyce Jr, MD Lab Urinalysis, Dipstick 06/01/2018 [facility] ([facility]) Hobby CBC W/ Auto Diff 06/01/2018 [facility] CMP, Serum or Plasma 06/01/2018 [facility] TSH, Serum or Plasma 06/01/2018 [facility] Lipid Panel, Serum 06/01/2018 [facility] Drug Screen, Urine 06/01/2018 [facility] Referral None recorded. Procedures None recorded. [...] lbs 27.3 kg/m2 (1) 204/102 mm[Hg] (2) 124/70 mm[Hg] Lab Results None recorded. Allergies Code [...] for Falls; Hypertensive Urgency; Benign Essential Hypertension; Ndnvfyqvmvy-vguzwqnbig-gulcgd Inhibitor Adverse Reaction; Mixed Hyperlipidemia; Screening for Cardiovascular System Disease; Gastroesophageal Reflux Disease; Chronic Pain Syndrome Jung Boyce Jr, MD: [address] [facility], [address], [place] [address], Ph. History of Present Illness Hypertension Reported [...]
--- OUTSIDE RECORDS SUMMARY | 2018-10-11 20:17 | XMS REPORT | Encounter Summary ---
Author Organization Unknown Address [address] [place] [address] Phone [phone] Care Team Providers Care Fatback Trimmer Name Role Phone Dr. Jung Boyce 3 [phone] Jenny Gong MD 3 [phone] Jacinto Machado 107 [phone] Reason for Visit hypertension Instructions 1. Hypertensive renal disease 2. Chronic low back pain pain management referral Discussion Note: None recorded. Patient educational handouts: No information available. Plan of Care Reminders Provider Appointments None recorded. Lab None recorded. Referral Pain Management Referral 07/06/2018 Procedures None recorded. Surgeries None recorded. Imaging [...] day by oral route for 90 days. Os-Ramiro 500 + D3 500 mg (1,250 mg)-600 unit tablet Take 1 tablet twice a day by oral route for 90 days. tramadol 50 mg tablet Take 1 tablet every 8 hours by oral route for 15 days. Vesicare 10 mg tablet Take 1 tablet every day by oral route. Medications Administered None recorded. Vitals Height Weight BMI Blood Pressure 5 ft 4 in 159 lbs 27.3 kg/m2 142/78 mm[Hg] Lab Results Date Name Specimen Result Interpretation Description Value Range Status Address 06/08/2018 Electrocardiogram Rate & Rhythm sinus regular [facility] ([facility]) Hobby: [phone] [facility] [address], [place] Qrs [facility] ([facility] Hobby: [phone] [facility] [address], [place] Interval [facility] ([facility]) Hobby: [phone] [facility] [address], [place] QRS Duration [facility] ([facility]) Hobby: [phone] QT Interval [facility] ([facility]) Hobby: [phone] Cbc No observation recorded. 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 Diverticular Disease Active 06/16/2018 Procedures Date Name Performed by 04/19/2017 Cancer Surgery Information not available Hysterectomy (Total) Information not available 06/08/2018 Electrocardiogram [facility] ([facility]) Hobby [address] [address] (Work Place) 06/08/2018 XR, Lumbosacral Spine, 2 or 3 View [facility] [address] [place] [address] (Work Place) Vaccine List Vaccine Type influenza, unspecified formulation 02/04/2015 01/30/2016 01/18/2017 12/30/2017 Social History Smoking Status Never Smoker Past Encounters 07/06/2018 Hypertensive Renal Disease; Chronic Low Back Pain Jung Boyce Jr, MD: [address] [address], Ph. 06/16/2018 Degeneration of Lumbar Intervertebral Disc; Osteopenia; Hypertensive Renal Disease Jung Boyce Jr, MD: [address] [address], Ph. 06/08/2018 Hypertensive Renal Disease; Chronic Kidney Disease Stage 3; Tachycardia; Iron Deficiency Anemia; Chronic Constipation; Lumbar Radiculopathy; Inflammation of Sacroiliac Joint Jung Boyce Jr, MD: [address] [address], Ph. History of Present Illness Hypertension Reported By: Patient HPI: Severity: mild. Onset/Timing: gradual onset. Alleviating Factors: relieved with rest, medication. Self Care: not under emotional stress, blood pressure goal: 130/80. Associated Symptoms: no shortness of breath, no fatigue, no decline in exercise capacity Review of Systems Comprehensive General Adult ROS Reported By: Patient Constitutional: Constitutional: no significant weight gain, no significant weight loss Cardiovascular: Cardiovascular: no chest pain, no shortness of breath when walking Respiratory: Respiratory: no cough, no wheezing, no shortness of breath Endocrine: Endocrine: no fatigue Physical Exam Cardiology Exam Reported By: Patient Constitutional: General Appearance: well-nourished, well-developed, appears stated age. Level of Distress: comfortable Lungs: Respiratory Effort: unlabored. Chest Exam: no chest wall tenderness. Auscultation: clear, no wheezing, no rales, no rhonchi Cardiovascular: Rate And Rhythm: regular. Heart Sounds: normal S1, physiologically split S2, no rub, no gallop, no click. Systolic Murmur: not heard. Diastolic Murmur: not heard. Extremities: no cyanosis, no edema, no peripheral signs of emboli Peripheral Pulses: Pulses: full and equal in all extremities except if noted Skin: Inspection and Palpation: warm and dry
--- OUTSIDE RECORDS SUMMARY | 2018-10-11 20:17 | XMS REPORT | Encounter Summary ---
Author Organization Unknown Address [address] [place] [address] Phone [phone] Care Team Providers Care Human Resources Vice President Name Role Phone Dr. Jung Boyce 3 [phone] Jenny Gong MD 3 [phone] Jacinto Jayadelaide 107 [phone] Reason for Visit Inflammation of sacroiliac joint; Chronic kidney disease stage 3; Bladder muscle dysfunction - overactive; Iron deficiency anemia; Hypertensive renal disease Instructions 1. Hypertensive renal disease 2. Chronic kidney disease stage 3 3. Peripheral venous insufficiency furosemide 20 mg tablet potassium chloride ER 10 mEq tablet,extended release 4. Peripheral edema 5. Bladder muscle dysfunction - overactive Vesicare 10 mg tablet 6. Inflammation of sacroiliac joint tizanidine 2 mg capsule 7. Depression screening 8. Immunization refused Discussion Note: None recorded. Patient educational handouts: No information available. Plan of Care Reminders Provider Appointments Return to Office on or around 09/28/2018 Jung Boyce Jr, MD Visit 09/29/2018 Jung Boyce Jr, MD Return to Office on or around 12/15/2018 Jung Boyce Jr, MD Lab None recorded. Referral None recorded. Procedures None recorded. Surgeries None recorded. Imaging None recorded. Medications Name Start Date amlodipine 10 mg tablet TAKE 1 TABLET BY MOUTH EVERY DAY docusate sodium 100 mg capsule Take 1 capsule every day by oral route for 90 days. ferrous sulfate 325 mg (65 mg iron) tablet Take 1 tablet twice a day by oral route for 90 days. furosemide 20 mg tablet Take 1 tablet twice a day by oral route for 14 days. omeprazole 20 mg capsule,delayed release TAKE 1 CAPSULE BY MOUTH EVERY DAY Os-Ramiro 500 + D3 500 mg (1,250 mg)-600 unit tablet Take 1 tablet twice a day by oral route for 90 days. potassium chloride ER 10 mEq tablet,extended release Take 1 tablet every day by oral route for 15 days. tizanidine 2 mg capsule Take 1 capsule every 6 hours by oral route. tramadol 50 mg tablet Take 1 tablet every 8 hours by oral route for 15 days. Vesicare 10 mg tablet Take 1 tablet every day by oral route. Medications Administered None recorded. Vitals Height Weight BMI Blood Pressure 5 ft 4 in 159 lbs 27.3 kg/m2 140/70 mm[Hg] Lab Results None recorded. Allergies Code Code System Name Reaction Severity Status Onset 65555 RxNorm Lisinopril Dizziness Moderate Active Penicillins Active [...] Hysterectomy (Total) Information not available Vaccine List Vaccine Type influenza, unspecified formulation 02/04/2015 01/30/2016 01/18/2017 12/30/2017 Social History Smoking Status Never Smoker Past Encounters 09/14/2018 Hypertensive Renal Disease; Chronic Kidney Disease Stage 3; Peripheral Venous Insufficiency; Peripheral Edema; Bladder Muscle Dysfunction - Overactive; Inflammation of Sacroiliac Joint; Depression Screening; Immunization Refused Jung Carli Cha MD: [address] [facility], [address], [place] [address], Ph. History of Present Illness Hypertension Reported By: Patient HPI: Severity: mild. Onset/Timing: gradual onset. Alleviating Factors: relieved with rest, medication. Self Care: not under emotional stress, blood pressure goal: 140/80. Associated Symptoms: no shortness of breath, no [...] appears stated age. Level of Distress: comfortable Psychiatric: Mental Status: alert, normal affect. Orientation: oriented to time, place, and person. Insight: good judgment Lungs: Respiratory Effort: unlabored. Chest Exam: no [...]
--- OUTSIDE RECORDS SUMMARY | 2018-10-11 20:17 | XMS REPORT | Encounter Summary ---
Author Organization Unknown Address [address] [place] [address] Phone [phone] Care Team Providers Care Animal Biologist Name Role Phone Dr. Jung Boyce 3 [phone] Jenny Gong MD 3 [phone] Jacinto Jayadelaide 107 [phone] Reason for Visit other - see typed reason Instructions 1. Degeneration of lumbar intervertebral disc pain management referral tramadol 50 mg tablet 2. Osteopenia Os-Ramiro 500 + D3 500 mg (1,250 mg)-600 unit tablet 3. Hypertensive renal disease Discussion Note: None recorded. Patient educational handouts: No information available. Plan of Care Reminders Provider Appointments Est Patient 07/06/2018 3:00PM Jung Boyce Jr, MD Lab None recorded. Referral Pain Management Referral 06/16/2018 Procedures None recorded. Surgeries None recorded. Imaging [...] BMI Blood Pressure 5 ft 4 in 156.8 lbs 26.9 kg/m2 152/80 mm[Hg] Lab Results Date Name Specimen Result Interpretation Description Value Range Status Address 06/08/2018 Electrocardiogram Rate & Rhythm sinus regular [facility] ([facility]) Hobby: [address] [facility] [address], [place] Qrs [facility] (Vfp[facility] Hobby: [address] [facility] [address] [place] Interval [facility] (Vf) Hobby: [address] [facility], [place] QRS Duration [facility] ([facility]fp) Hobby: [address] [facility], [place] QT Interval [facility] (Vf) [facility] [address] [facility] [place] 06/01/2018 CBC W/ Auto Diff Wbc 6.86 x10*3/L 3.98-10.04 x10*3/L Final [facility] Laboratory: [address], [place] Rbc 4.88 10*12/L 3.93-5.22 10*12/L Final [facility] [address] [facility] Hemoglobin 13.10 g/dL 11.20-15.70 g/dL Final [facility] Laboratory: [address] [place] [address] Hematocrit 41.2 % 34.1-44.9 % Final [facility] Laboratory: [address] [place] [address] Mcv 84.4 fL 80.0-100.0 fL Final [facility] Laboratory: [address] [place] [address] Mch 26.8 pg 25.6-32.2 pg Final [facility] Laboratory: [address] [facility] Low Mchc 31.8 g/dL 32.2-35.5 g/dL Final [facility] Laboratory: [address] [facility] High RDW-SD 52.9 fL 36.4-46.3 fL Final [facility] Laboratory: [address] [place] [address] Platelet Count 246.0 k/uL 182.0-369.0 k/uL Final [facility] Laboratory: [address] [place] [address] High Mpv 11.9 fL 7.5-11.5 fL Final [facility] Laboratory: [address] [facility] Neut% 59.4 % 34.0-71.1 % Final [facility] Laboratory: [address] [facility] Lymph% 28.9 % 19.3-51.7 % Final [facility] Laboratory: [address] [facility] Mon% 6.6 % 4.7-12.5 % Final [facility] Laboratory: [address] [place] Eos% 4.8 % 0.7-5.8 % Final [facility] Laboratory: [address] [place] Baso% 0.3 % 0.1-1.2 % Final [facility] Laboratory: [address] [place] Neut# 4.1 x10*3/L 1.6-6.1 x10*3/L Final [facility] Laboratory: [address] [place] Lymph# 2.0 x10*3/L 1.2-3.7 x10*3/L Final [facility] Laboratory: [address], [place] Mon# 0.5 x10*3/L 0.2-0.9 x10*3/L Final [facility] Laboratory: [address] [place] Eos# 0.33 x10*3/L 0.04-0.36 x10*3/L Final [facility] Laboratory: [address] [place] Baso# 0.02 x10*3/L 0.01-0.08 x10*3/L Final [facility] Laboratory: [address] [place] 06/01/2018 CMP, Serum or Plasma Alt 18 U/L 0-55 U/L Final [facility] Laboratory: [address] [place] Ast 20 U/L 5-34 U/L Final [facility] Laboratory: [address] [place] High Bun 21.2 mg/dL 9.8-20.1 mg/dL Final [facility] Laboratory: [address] [place] Alk Phos 78 unit/L 40-150 unit/L Final [facility] Laboratory: [address] [place] Glucose 99 mg/dL 70-99 mg/dL Final [facility] Laboratory: [address] [place] Albumin 4.2 g/dL 3.5-5.0 g/dL Final [facility] Laboratory: [address] [facility] High Creatinine 1.19 mg/dL 0.57-1.11 mg/dL Final [facility] Laboratory: [address] [facility] ABNORMAL eGFR Non- 43 mL/min/1.73m2 Final [facility] Laboratory: [address] [facility] Total Bilirubin 0.3 mg/dL 0.2-1.2 mg/dL Final [facility] Laboratory: [address] [facility] ABNORMAL eGFR - 52 mL/min/1.73m2 Final [facility] Laboratory: [address] [facility] Sodium 143 mEq/L 136-145 mEq/L Final [facility] Laboratory: [address] Potassium 4.6 mEq/L 3.5-5.1 mEq/L Final [facility] Laboratory: [address] Chloride 107 mmol/L 98-107 mmol/L Final [facility] Laboratory: [address] [place] [address] Total Protein 7.8 g/dL 6.4-8.3 g/dL Final [facility] Laboratory: [address] High Calcium 10.3 mg/dL 8.4-10.2 mg/dL Final [facility] Laboratory: [address] Co2 26.3 mmol/L 23.0-31.0 mmol/L Final [facility] Laboratory: [address] Anion Gap 10 calc Final [facility] Laboratory: [address] [facility] 06/01/2018 Lipid Panel, Serum Low Hdl 38 mg/dL 40-60 mg/dL Final [facility] Laboratory: [address] High Triglyceride 205 mg/dL 0-149 mg/dL Final [facility] Laboratory: [address] VLDL Calc. 41 mg/dL Final [facility] Laboratory: [address] cholesterol/HDL Ratio 5.1 mg/dL Final [facility] Laboratory: [address] non-HDL Cholesterol Calc. 154 mg/dL 0-160 mg/dL Final [facility] Laboratory: [address] Cholesterol 192 mg/dL 0-199 mg/dL Final [facility] Laboratory: [address] LDL Calc. 113 mg/dL 0-130 mg/dL Final [facility] Laboratory: [address], [place] 06/01/2018 TSH, Serum or Plasma Tsh 1.100 uIU/mL 0.350-4.940 uIU/mL Final [facility] Laboratory: [address], [place] 06/01/2018 Drug Screen, Urine Please Note: Final [facility] Laboratory: [address], [place] Normal Amphetamines (1000 NG/mL Screen) negative Final [facility] Laboratory: [address], [place] Normal Barbiturates negative Final [facility] Laboratory: [address], [place] Normal Benzodiazepines negative Final [facility] Laboratory: [address], [place] Normal Cocaine Metabolites negative Final [facility] Laboratory: [address], [place] Normal Marijuana Metabolites (100 NG/mL Screen) negative Final [facility] Laboratory: [address], [place] Normal Methadone negative Final [facility] Laboratory: [address], [place] Normal Methaqualone negative Final [facility] Laboratory: [address], [place] Normal Opiates negative Final [facility] Laboratory: [address], [place] Normal Phencyclidine negative Final [facility] Laboratory: [address], [place] Normal Propoxyphene negative Final [facility] Laboratory: [address], [place] Comment Final [facility] Laboratory: [address], [place] 06/01/2018 Urinalysis, Dipstick Urine Color Color light yellow [facility] ([facility]) Hobby: [address] [place] Urine Color Appearance clear [facility] ([facility]) [address]obby: [address] [place] Urine Color Glucose negative [facility] ([facility]) Hobby: [address] [place] Urine Color Bilirubin small [facility] ([facility]) [address]: [address] [place] Urine Color Ketones trace [facility] ([facility]) [address]: [address] [place] Urine Color Specific [place] 1.030 [facility] ([facility]) H[address]: [address] [place] Urine Color Blood negative [facility] ([facility]) [address]: [address] [place] Urine Color PH 5.0 [facility] ([facility]) [facility]: [address] [facility] [place] Urine Color Protein trace [facility] ([facility]) [facility]: [address] [facility] [place] Urine Color Urobilinogen 0.2 [facility] ([facility]) [facility] [address] [facility] [place] Urine Color Nitrites negative [facility] ([facility]) [facility]: [address] [facility] [place] Urine Color Leukocytes negative [facility] ([facility]) Hobby: [address] [address], [place] Cbc No observation recorded. Allergies Code Code [...] Hysterectomy (Total) Information not available 06/08/2018 Electrocardiogram [facility] ([facility]) [address] [address] (Work [address]) 06/08/2018 XR, Lumbosacral Spine, 2 or 3 View [facility] [address] [place] [address] (Work Place) Vaccine List Vaccine Type influenza, unspecified formulation 02/04/2015 01/30/2016 01/18/2017 12/30/2017 Social History Smoking Status Never Smoker Past Encounters 06/16/2018 Degeneration of Lumbar Intervertebral Disc; Osteopenia; Hypertensive Renal Disease Jung Boyce Jr, MD: [address] [address], Ph. 06/08/2018 Hypertensive Renal Disease; Chronic Kidney Disease Stage 3; Tachycardia; Iron Deficiency Anemia; Chronic Constipation; Lumbar Radiculopathy; Inflammation of Sacroiliac Joint Jung Boyce Jr, MD: [address] [address], Ph. 06/01/2018 Adult Health Examination; Body Mass Index 25-29 - Overweight; Overweight; Advance Directive Discussed with Patient; Depression Screening; At Risk for Falls; Hypertensive Urgency; Benign Essential Hypertension; Uecpgazwfja-ovdvxuvsse-bamoiu Inhibitor Adverse Reaction; Mixed Hyperlipidemia; Screening for Cardiovascular System Disease; Gastroesophageal Reflux Disease; Chronic Pain Syndrome Jung Boyce Jr, MD: [address] [facility], [address], [place] [address], Ph. History of Present Illness Note:Patient presents for radiology follow up. Currently without new complaint. Review of Systems Comprehensive General Adult ROS Reported By: Patient Constitutional: Constitutional: no significant weight gain, no significant weight loss Cardiovascular: Cardiovascular: no chest pain, no shortness of breath when walking Respiratory: Respiratory: no cough, no wheezing, no shortness of breath Endocrine: Endocrine: no fatigue Physical Exam Neurology Exam Reported By: Patient Constitutional: Weight: well-nourished. Ambulation: ambulates independently Head: Size/Trauma: normocephalic Mental Status: Orientation oriented to person, oriented to place, oriented to time. Mood/Affect: appropriate mood, appropriate affect. Language: has spontaneous speech. Memory: recent memory intact, remote memory intact. Fund of Knowledge: current events, past history
[2018-10-11] MEDS ORDERED: FUROSEMIDE INJ 10 MG/ML 2 ML VIAL IV ONE (20:45)
[2018-10-11] MEDS ORDERED: FUROSEMIDE INJ 10 MG/ML 4 ML VIAL ONE (20:58)
== END 2018-10-11 21:45 | disposition home or self-care (01) ==
LOC: FSED 20:11
DX: R60.0 Localized edema (principal); I10 Essential (primary) hypertension; E78.5 Hyperlipidemia, unspecified; M54.9 Dorsalgia, unspecified; G89.29 Other chronic pain; M19.90 Unspecified osteoarthritis, unspecified site; Z79.82 Long term (current) use of aspirin
CPT/HCPCS: 80053; 81003; 83880; 84484; 85025; 99283; J1940 ×2

== ENCOUNTER 2019-02-26 00:33 | Emergency (ER) | payer MEDICARE, OTHER ==
[~2019-02-26] VITALS: Ht 167.6 cm; Wt 77.1 kg
--- OUTSIDE RECORDS SUMMARY | 2019-02-26 00:38 | XMS REPORT | Encounter Summary ---
Author Organization Unknown Address [address] [place] [address] Phone [phone] Care Team Providers Care Healthcare Economics Consultant Name Role Phone Dr. Jung Boyce 3 [phone] Jenny Gong MD 3 [phone] Jacinto Renataronaadelaide 107 [phone] Reason for Visit hypertension Instructions 1. Hypertensive renal disease CMP, serum or plasma CBC w/ auto diff TSH, serum or plasma urinalysis, dipstick amlodipine 5 mg tablet 2. Chronic kidney disease stage 3 PTH (parathyroid hormone), intact, serum or plasma 3. Screening for cardiovascular system disease lipid panel, serum 4. Impaired glucose tolerance HbA1c (hemoglobin A1c), blood Discussion Note: None recorded. Patient educational handouts: No information available. Plan of Care Reminders Provider Appointments Return to Office on or around 02/14/2019 Jung Boyce Jr, MD Lab CMP, Serum or Plasma 01/31/2019 [facility] CBC W/ Auto Diff 01/31/2019 [facility] TSH, Serum or Plasma 01/31/2019 [facility] Lipid Panel, Serum 01/31/2019 [facility] HbA1C (Hemoglobin a1C), Blood 01/31/2019 [facility] Urinalysis, Dipstick 01/31/2019 [facility] PTH (Parathyroid Hormone), Intact, Serum or Plasma 01/31/2019 [facility] Referral None recorded. Procedures None recorded. Surgeries None recorded. Imaging None recorded. Medications Name Start Date amlodipine 5 mg tablet Take 1 tablet every day by oral route for 90 days. meloxicam 7.5 mg tablet Take 1 tablet twice a day by oral route for 90 days. metoprolol succinate ER 25 mg tablet,extended release 24 hr Take 1 tablet every day by oral route for 90 days. omeprazole 20 mg capsule,delayed release TAKE 1 CAPSULE BY MOUTH EVERY DAY Os-Ramiro 500 + D3 500 mg (1,250 mg)-600 unit tablet Take 1 tablet twice a day by oral route for 90 days. solifenacin 10 mg tablet Take 1 tablet every day Medications Administered None recorded. Vitals Height Weight BMI Blood Pressure 5 ft 4 in 166 lbs 28.5 kg/m2 120/76 mm[Hg] Results Lab Results None recorded. Allergies Code Code System Name Reaction Severity Status Onset 95861 RxNorm Lisinopril Dizziness Moderate Active Penicillins Active Problems Name Status Onset Date Source Bladder Muscle Dysfunction - Overactive Active 06/01/2018 Hypertensive Renal Disease Active 06/02/2018 Chronic Kidney Disease Stage 3 Active 06/02/2018 Iron Deficiency Anemia Active 06/08/2018 Inflammation of Sacroiliac Joint Active 06/08/2018 Diverticular Disease Active 06/16/2018 Dementia Active 10/18/2018 Schizophrenia Active 10/18/2018 Procedures Date Name Performed by 04/19/2017 Cancer Surgery Information not available Hysterectomy (Total) Information not available Vaccine List Vaccine Type influenza, unspecified formulation 02/04/2015 01/30/2016 01/18/2017 12/30/2017 Social History Tobacco Smoking Status Never Smoker Past Encounters 01/31/2019 Hypertensive Renal Disease; Chronic Kidney Disease Stage 3; Screening for Cardiovascular System Disease; Impaired Glucose Tolerance Jung Boyce Jr, MD: [address], [place] [address], Ph. 01/11/2019 Hypertensive Renal Disease; Bladder Muscle Dysfunction - Overactive; Abdominal Pain; Gastroesophageal Reflux Disease; Body Mass Index 25-29 - Overweight; Immunization Refused; Influenza Vaccination Declined Jung Boyce Jr, MD: [address] [facility], [place] [address], Ph. History of Present Illness Hypertension Reported By: Patient HPI: Severity: mild. Onset/Timing: gradual onset. Alleviating Factors: relieved with rest, medication. Self Care: not under emotional stress, blood pressure goal: 130/80. Associated Symptoms: no shortness of breath, no fatigue, no decline in exercise capacity Hyperlipidemia Reported By: Patient HPI: Type of hyperlipidemia: combined, hypercholesterolemia. Duration: chronic. Current Therapy: currently taking:. Complications: no coronary artery disease Review of Systems Comprehensive General Adult ROS [...]
--- OUTSIDE RECORDS SUMMARY | 2019-02-26 00:38 | XMS REPORT | Encounter Summary ---
Author Organization Unknown Address [address] [place] [address] Phone [phone] Care Team Providers Care Haulage Boss Name Role Phone Dr. Jung Boyce 3 [phone] Jenny Gong MD 3 [phone] Jacinto [place] 107 [phone] Reason for Visit hypertension Instructions 1. Hypertensive renal disease metoprolol succinate ER 25 mg tablet,extended release 24 hr 2. Chronic kidney disease stage 3 3. Gastroesophageal reflux disease omeprazole 20 mg capsule,delayed release H pylori urea breath test, co2 infrared Discussion Note: None recorded. Patient educational handouts: No information available. Plan of Care Reminders Provider Appointments None recorded. Lab H Pylori Urea Breath Test, Co2 Infrared 11/25/2018 [facility] Referral None recorded. Procedures None recorded. Surgeries None recorded. Imaging None recorded. Medications Name Start Date amlodipine 10 mg tablet TAKE 1 TABLET BY MOUTH EVERY DAY divalproex 500 mg tablet,delayed release Take 2 tablets every day by oral route at bedtime for 30 days. docusate sodium 100 mg capsule Take 1 capsule every day by oral route for 90 days. meloxicam 7.5 mg tablet Take 1 tablet twice a day by oral route for 30 days. metoprolol succinate ER 25 mg tablet,extended release 24 hr Take 1 tablet every day by oral route for 90 days. olanzapine 5 mg tablet Take 1 tablet every day by oral route at bedtime for 30 days. omeprazole 20 mg capsule,delayed release TAKE 1 CAPSULE BY MOUTH EVERY DAY Os-Ramiro 500 + D3 500 mg (1,250 mg)-600 unit tablet Take 1 tablet twice a day by oral route for 90 days. risperidone 0.25 mg tablet Take 1 tablet twice a day by oral route for 15 days. tizanidine 2 mg tablet Vesicare 10 mg tablet Take 1 tablet every day by oral route. Medications Administered None recorded. Vitals Height Weight BMI Blood Pressure 5 ft 4 in 166 lbs 28.5 kg/m2 (1) 154/86 mm[Hg] (2) 140/84 mm[Hg] Lab Results None recorded. Allergies Code Code System Name Reaction Severity Status Onset 97340 RxNorm Lisinopril Dizziness Moderate Active Penicillins Active [...] Tobacco Smoking Status Never Smoker Past Encounters 11/25/2018 Hypertensive Renal Disease; Chronic Kidney Disease Stage 3; Gastroesophageal Reflux Disease Jung Boyce Jr, MD: [address] [facility], [facility], [place] [address], Ph. History of Present Illness Hypertension Reported [...]
--- OUTSIDE RECORDS SUMMARY | 2019-02-26 00:38 | XMS REPORT | Encounter Summary ---
Author Organization Unknown Address [address] [place] [address] Phone [phone] Care Team Providers Care Order Booker Name Role Phone Dr. Jung Boyce 3 [phone] Jenny Gong MD 3 [phone] Jacinto [address] 107 [phone] Reason for Visit hypertension Instructions 1. Hypertensive renal disease 2. Chronic kidney disease stage 3 3. Schizophrenia Discussion Note: None recorded. Patient educational handouts: No information available. Plan of Care Reminders Provider Appointments None recorded. Lab None recorded. Referral None recorded. Procedures [...] day by oral route for 30 days. olanzapine 5 mg tablet Take 1 tablet every day by oral route at bedtime for 30 days. Os-Ramiro 500 + D3 500 mg (1,250 mg)-600 unit tablet Take 1 tablet twice a day by oral route for 90 days. risperidone 0.25 mg tablet Take 1 tablet twice a day by oral route for 15 days. Vesicare 10 mg tablet Take 1 tablet every day by oral route. Medications Administered None recorded. Vitals Height Weight BMI Blood Pressure 5 ft 4 in 162 lbs 27.8 kg/m2 136/72 mm[Hg] Lab Results None recorded. Allergies Code Code System Name Reaction Severity Status Onset 79485 RxNorm Lisinopril Dizziness Moderate Active Penicillins Active [...] History Smoking Status Never Smoker Past Encounters 10/19/2018 Hypertensive Renal Disease; Chronic Kidney Disease Stage 3; Schizophrenia Jung Boyce Jr, MD: [address], [place] [address], Ph. 10/18/2018 Hospital Patient; Hypertensive Renal Disease; Chronic Kidney Disease Stage 3; Bladder Muscle Dysfunction - Overactive; Inflammation of Sacroiliac Joint; Schizophrenia; Disorganized Schizophrenia Jung Boyce Jr, MD: [address], [facility], [place] [address], Ph. 09/29/2018 Jung Boyce Jr, MD: [address], [facility], [place] [address], Ph. History of Present Illness Hypertension Reported [...] currently taking:. Complications: no coronary artery disease Note:Today for medication reconciliation Review of Systems Comprehensive General Adult ROS Reported By: Patient Constitutional: Constitutional: no significant weight gain, no significant weight loss Cardiovascular: Cardiovascular: no chest pain, no shortness of breath when walking Respiratory: Respiratory: no cough, no wheezing, no shortness of breath Endocrine: Endocrine: no fatigue Physical Exam Neurology Exam, Cardiology Exam Reported By: Patient Constitutional: Weight: well-nourished. Ambulation: ambulates independently Head: Size/Trauma: normocephalic Mental Status: Orientation oriented to person, oriented to place, oriented to time. Mood/Affect: appropriate mood, appropriate affect. Language: has spontaneous speech. Memory: recent memory intact, remote memory intact. Fund of Knowledge: current events, past history
--- OUTSIDE RECORDS SUMMARY | 2019-02-26 00:38 | XMS REPORT | Encounter Summary ---
Author Organization Unknown Address [address] [place] [address] Phone [phone] Care Team Providers Care Account Director Name Role Phone Dr. Jung Boyce 3 [phone] Jenny Gong MD 3 [phone] Jacinto Jayadelaide 107 [phone] Reason for Visit Bladder muscle dysfunction - overactive; heartburn/indigestion Instructions 1. Hypertensive renal disease 2. Bladder muscle dysfunction - overactive Vesicare 10 mg tablet 3. Abdominal pain 4. Gastroesophageal reflux disease 5. Body mass index 25-29 - overweight learning about healthy weight 6. Immunization refused 7. Influenza vaccination declined Discussion Note: None recorded. Plan of Care Reminders Provider Appointments None recorded. Lab None recorded. Referral None recorded. Procedures None recorded. Surgeries None recorded. Imaging None recorded. Medications Name Start Date amlodipine 10 mg tablet Take 1 tablet every day by oral route. clotrimazole-betamethasone 1 %-0.05 % topical cream APPLY TO THE AFFECTED AND SURROUNDING AREAS OF SKIN BY TOPICAL ROUTE 2 TIMES PER DAY IN THE MORNING AND EVENING FOR 2 WEEKS meloxicam 7.5 mg tablet Take 1 tablet [...] BMI Blood Pressure 5 ft 4 in 170 lbs 29.2 kg/m2 (1) 152/82 mm[Hg] (2) 140/80 mm[Hg] Lab Results Date Name Specimen Result Interpretation Description Value Range Status Address 12/22/2018 Electrocardiogram Rate & Rhythm sinus regular [facility]: [address] [address], [place] Qrs [facility]: [address] [address], [place] MD Interval [facility]: [address] [address], [place] QRS Duration [facility]: [address] [address], [place] QT Interval [facility]: [address] [address], [place] Allergies Code Code System Name Reaction Severity Status Onset 46125 RxNorm Lisinopril Dizziness Moderate Active Penicillins Active [...] not available Hysterectomy (Total) Information not available 12/22/2018 Electrocardiogram [facility] [address] [address] (Work Place) Vaccine List Vaccine Type influenza, unspecified formulation 02/04/2015 01/30/2016 01/18/2017 12/30/2017 Social History Tobacco Smoking Status Never Smoker Past Encounters 01/11/2019 Hypertensive Renal Disease; Bladder Muscle Dysfunction - Overactive; Abdominal Pain; Gastroesophageal Reflux Disease; Body Mass Index 25-29 - Overweight; Immunization Refused; Influenza Vaccination Declined Jung Boyce Jr, MD: [address] [address], [place]. 12/22/2018 Hypertensive Renal Disease; Chronic Kidney Disease Stage 3; Near Syncope; Moderate Recurrent Major Depression; Candidal Intertrigo Jung Boyce Jr, MD: [address] [address], Ph. History of Present Illness Abdominal Pain Reported By: Patient Abdominal Pain: [...] ROS Reported By: Patient Constitutional: Constitutional: no fever, no night sweats, no significant weight gain, no significant weight loss Cardiovascular: Cardiovascular: no chest pain Gastrointestinal: Gastrointestinal: no abdominal pain, no nausea, no vomiting, no constipation, normal appetite, no diarrhea, not vomiting blood, no dyspepsia Genitourinary: Genitourinary: no incontinence, no difficulty urinating, no hematuria, no increased frequency Endocrine: Endocrine: no fatigue Physical Exam Brief Abdominal Pain Exam, Neurology Exam Reported By: Patient Constitutional: General Appearance: well-developed, well-nourished, healthy-appearing, alert, oriented, NAD Cardiovascular: Heart Auscultation: S1 present, S2 present, no murmurs Lungs: Lungs: clear to auscultation bilaterally, no wheezing, no crackles Abdomen: Inspection and Palpation: soft, bowel sounds 4 quadrants, no tenderness, non-distended Constitutional: Ambulation: ambulates independently Head: Size/Trauma: normocephalic Mental Status: Orientation oriented to person, oriented to place, oriented to time. Mood/Affect: appropriate mood, appropriate affect. Language: has spontaneous speech. Memory: recent memory intact, remote memory intact
--- OUTSIDE RECORDS SUMMARY | 2019-02-26 00:38 | XMS REPORT | Encounter Summary ---
Author Organization Unknown Address [address] [place] [address] Phone [phone] Care Team Providers Care Bid Writer Name Role Phone Dr. Jung Boyce 3 [phone] Jenny Gong MD 3 [phone] Jacinto Jayadelaide 107 [phone] Reason for Visit hypertension Instructions 1. Hypertensive renal disease 2. Chronic kidney disease stage 3 3. Near syncope electrocardiogram 4. Moderate recurrent major depression 5. Candidal intertrigo clotrimazole-betamethasone 1 %-0.05 % topical cream Discussion Note: None recorded. Patient educational handouts: No information available. Plan of Care Reminders Provider Appointments Return to Office on or around 12/22/2018 Jung Boyce Jr, MD Lab None recorded. Referral None recorded. Procedures None recorded. Surgeries None recorded. Imaging Electrocardiogram 12/22/2018 [facility] Medications Name Start Date amlodipine 10 mg tablet TAKE 1 TABLET BY MOUTH EVERY DAY clotrimazole-betamethasone 1 %-0.05 % topical cream APPLY TO THE AFFECTED AND SURROUNDING AREAS OF SKIN BY TOPICAL ROUTE 2 TIMES PER DAY IN THE MORNING AND EVENING FOR 2 WEEKS divalproex 500 mg tablet,delayed release Take 2 tablets every day by oral route at bedtime for 30 days. meloxicam 7.5 mg tablet Take 1 [...] BMI Blood Pressure 5 ft 4 in 166.4 lbs 28.6 kg/m2 (1) 152/80 mm[Hg] (2) 144/80 mm[Hg] Lab Results Date Name Specimen Result Interpretation Description Value Range Status Address 11/25/2018 H Pylori Urea Breath Test, Co2 Infrared Normal Helicobacter Pylori, Urea Breath Test not detected not detected Final [facility]: [address] [place] [address] Allergies Code Code System Name Reaction Severity Status Onset 95037 RxNorm Lisinopril Dizziness Moderate Active Penicillins Active [...] Hysterectomy (Total) Information not available 12/22/2018 Electrocardiogram [facility] [address] [facility] [address] [place] [address] (Work Place) Vaccine List Vaccine Type influenza, unspecified formulation 02/04/2015 01/30/2016 01/18/2017 12/30/2017 Social History Tobacco Smoking Status Never Smoker Past Encounters 12/22/2018 Hypertensive Renal Disease; Chronic Kidney Disease Stage 3; Near Syncope; Moderate Recurrent Major Depression; Candidal Intertrigo Jung Boyce Jr, MD: [address] [facility], [place] [address], Ph. 11/25/2018 Hypertensive Renal Disease; Chronic Kidney Disease Stage 3; Gastroesophageal Reflux Disease Jung Boyce Jr, MD: [address] [address], [place]. History of Present Illness Hypertension Reported By: Patient HPI: Severity: mild. Onset/Timing: gradual onset. Alleviating Factors: relieved with rest, medication. Self Care: not under emotional stress, blood pressure goal: 130/80. Associated Symptoms: no shortness of breath, no fatigue, no decline in exercise capacity Note:Urgent care follow up after discharge for reported presyncopal episode. Review of Systems Comprehensive General Adult ROS [...] noted Skin: Inspection and Palpation: warm and dry, rash
--- OUTSIDE RECORDS SUMMARY | 2019-02-26 00:38 | XMS REPORT | Encounter Summary ---
Author Organization Unknown Address [address] [place] [address] Phone [phone] Care Team Providers Care Emergency Operator Name Role Phone Dr. Jung Boyce 3 [phone] Jenny Gong MD 3 [phone] Jacinto Jayadelaide 107 [phone] Reason for Visit Schizophrenia; hospital follow up - [facility] (P) Instructions 1. Hospital patient transitional care management referral 2. Hypertensive renal disease 3. Chronic kidney disease stage 3 4. Bladder muscle dysfunction - overactive 5. Inflammation of sacroiliac joint 6. Schizophrenia 7. Disorganized schizophrenia Discussion Note: None recorded. Patient educational handouts: No information available. Plan of Care Patient Instructions Please follow up with your doctor in 1 day. Follow up with any specialists that we discussed during your visit today. If you need help getting your medications filled, our [facility] can sync medication refills, deliver within a 10 mile radius, or [facility] overnight at no additional cost. Please watch for warning symptoms that may occur: *fever *redness/oozing at surgical site *shortness of breath *uncontrolled pain *unexpected weight gain/loss *high or low blood pressure *chest pain *confusion *any other health concerns Call us at if you experience these symptoms. In addition to these services our office offers director of social work services, home health options and chronic conditions management. Please reach out to us with your particular needs. Evening and Wednesday clinic hours are available if you have problems. If you have problems after hours, you can reach the [facility] physician marketing automation specialist at . Reminders Provider Appointments Est Patient 10/19/2018 3:15PM Jung Boyce Jr, MD Lab None recorded. Referral Transitional Care Management Referral 10/18/2018 Procedures None recorded. Surgeries None recorded. Imaging None recorded. Medications Name Start Date amlodipine 10 mg tablet TAKE 1 TABLET BY MOUTH EVERY DAY cyclobenzaprine 10 mg tablet Take 1 tablet every day by oral route at bedtime. Ditropan XL 10 mg tablet,extended release Take 1 tablet every day by oral route. divalproex 500 mg tablet,delayed release Take 2 tablets every day by oral route at bedtime for 30 days. docusate sodium 100 mg capsule Take 1 capsule every day by oral route for 90 days. ferrous sulfate 325 mg (65 mg iron) tablet Take 1 tablet twice a day by oral route for 90 days. furosemide 20 mg tablet TAKE 1 TABLET BY MOUTH TWICE DAILY FOR 14 DAYS meloxicam 7.5 mg tablet Take 1 tablet twice a day by oral route for 30 days. olanzapine 5 mg tablet Take 1 tablet every day by oral route at bedtime for 30 days. Os-Ramiro 500 + D3 500 mg (1,250 mg)-600 unit tablet Take 1 tablet twice a day by oral route for 90 days. pantoprazole 40 mg tablet,delayed release Take 1 tablet every day by oral route. potassium chloride ER 10 mEq tablet,extended release TAKE 1 TABLET BY MOUTH EVERY DAY FOR 15 DAYS risperidone 0.25 mg tablet Take 1 tablet twice a day by oral route for 15 days. solifenacin 10 mg tablet Take 1 tablet every day by oral route. tramadol 50 mg tablet Take 1 tablet every 8 hours by oral route for 15 days. Medications Administered None recorded. Vitals Height Weight BMI Blood Pressure 5 ft 4 in 162 lbs 27.8 kg/m2 (1) 144/72 mm[Hg] (2) 140/70 mm[Hg] Lab Results None recorded. Allergies Code Code System Name Reaction Severity Status Onset 70931 RxNorm Lisinopril Dizziness Moderate Active Penicillins Active [...] History Smoking Status Never Smoker Past Encounters 10/18/2018 Hospital Patient; Hypertensive Renal Disease; Chronic Kidney Disease Stage 3; Bladder Muscle Dysfunction - Overactive; Inflammation of Sacroiliac Joint; Schizophrenia; Disorganized Schizophrenia Jung Boyce Jr, MD: [address], [place] [address], Ph. 09/29/2018 Jung Boyce Jr, MD: [address], [address], [place] [address], Ph. History of Present Illness TCM Provider Visit Reported By: Patient HPI: Timing: Date of discharge:; 10/05/2018. Discharge Information: Discharge Diagnoses:, Discharged from: [facility], Discharged to: Home, Hospital Records (H&P, DC Summary, Transition of Care Document) reviewed and scanned? Yes. Functional Status Difficulty following discharge instructions, Not taking medications as prescribed, Does not understand missed doses Review of Systems Comprehensive General Adult ROS Reported By: Patient Constitutional: Constitutional: no significant weight gain, no significant weight loss Cardiovascular: Cardiovascular: no chest pain, no shortness of breath when walking Respiratory: Respiratory: no cough, no wheezing, no shortness of breath Psychiatric: Psych: no depression, no sleep disturbances, feeling safe in a relationship, no alcohol abuse, no hallucinations, no suicidal thoughts, anxiety Endocrine: Endocrine: no fatigue Physical Exam Neurology Exam Reported By: Patient Constitutional: Weight: well-nourished. Ambulation: ambulates independently Head: Size/Trauma: normocephalic Mental Status: Orientation oriented to person, oriented to place, oriented to time. Mood/Affect: appropriate mood, appropriate affect. Language: has spontaneous speech. Memory: recent memory intact, remote memory intact. Fund of Knowledge: current events, past history
[2019-02-26 02:30] LABS: BILIRUBIN,URINE NEGATIVE (NEGATIVE); CLARITY,URINE CLEAR (CLEAR); COLOR,URINE YELLOW (YELLOW); KETONES,URINE NEGATIVE (NEGATIVE); LEUKOCYTE ESTERASE ,URINE NEGATIVE (NEGATIVE); NITRITE,URINE NEGATIVE (NEGATIVE); PROTEIN,URINE DIPSTICK TRACE (NEGATIVE); URINE UROBILINOGEN 0.2 mg/dL (0.2 - 1)
--- NOTE | 2019-02-26 02:40 | Diagnostic Imaging Report ---
EXAMINATION: Head CT without contrast. HISTORY:Dizziness and fall. COMPARISON:CT brain from 08/25/2012. TECHNIQUE: Multidetector axial images were obtained from the foramen magnum to the vertex without contrast. The images were reconstructed using brain and bone algorithms. Thin section brain images were reformatted into coronal and sagittal planes. Dose modulation, iterative reconstruction, and/or weight based adjustment of the mA/kV was utilized to reduce the radiation dose to as low as reasonably achievable. Intravenous contrast: None IMAGE QUALITY: Acceptable. FINDINGS: Skull/scalp: No lytic or blastic. lesions. No surgical changes. Parenchyma: Nonspecific few, scattered supratentorial white matter hypodensity are likely related to small vessel ischemic changes. Focal hypodensity in right lentiform nucleus represents chronic lacunar infarct. No acute hemorrhage, mass or acute major vascular territorial infarct. Arteries: No density suggestive of thrombosis. Dural sinuses: No abnormal density suggestive of thrombosis. Ventricles: No hydrocephalus or displacement. Extra-axial spaces: No abnormal density. Brain volume: Normal for age. Craniocervical junction: No mass, Chiari malformation, or basilar invagination. Sella: No mass. Paranasal/mastoid sinuses: Imaged portions unremarkable. IMPRESSION: No acute intracranial abnormality. Mild supratentorial white matter microvascular ischemic changes. Signed by: Dr. She Maharaj M.D. on 02/26/2019 2:37 AM
[2019-02-26 02:43] LABS: BACTERIA,URINE FEW /HPF; EPITHELIAL CELLS,URINE FEW /LPF
--- NOTE | 2019-02-26 03:09 | Diagnostic Imaging Report ---
History: Dizziness and fall. Comparison studies: None Technique: Axial images were obtained through the cervical region.. Coronal and sagittal images reconstructed from the axial data. Dose modulation, iterative reconstruction, and/or weight based adjustment of the mA/kV was utilized to reduce the radiation dose to as low as reasonably achievable. Intravenous contrast: None Findings: Fractures: None. Soft tissue injuries: Subtle hyperdensity in anterior thecal space that extends from the level of the superior tip of dens to the superior endplate of C3, approximately measures 5 mm in maximum thickness and 3.3 cm in maximum craniocaudad dimension (image 19, series 800). Atlantoaxial articulation: Intact. 4 mm well-corticated osseous fragment beneath the tip of the basion, right lateral to the tip of the dens possibly represents sequel prior trauma. Alignment: Loss of normal cervical lordosis is either positional or due to muscle spasm. 3 mm grade 1 retrolisthesis at C4-C5, is likely degenerative. No scoliosis. Cervicomedullary junction: As detailed above. The foramen magnum is patent. Soft tissues: Atherosclerotic calcification in bilateral carotid bulb. Vertebrae: No fractures, infection or neoplasm. Degenerative changes: C2-C3: Nonspecific 5 mm hyperdensity in the anterior thecal space results in moderate canal stenosis. C3-C4: Mild right foraminal stenosis due to facet and uncovertebral arthrosis. C4-C5: Moderate degenerative disc disease. Posterior disc osteophyte complex and grade 1 retrolisthesis results in moderate canal stenosis. Moderate right foraminal stenosis due to facet and uncovertebral arthrosis. C5-C6: Posterior disc osteophyte complex results in mild canal stenosis. Mild right and moderate left foraminal stenosis due to facet and uncovertebral arthrosis. C6-C7: Moderate bilateral foraminal stenosis due to facet and uncovertebral arthrosis. IMPRESSION: 1. No acute cervical spine fracture or dislocation. Loss of normal cervical lordosis is either positional or due to muscle spasm. 2. Focal hyperdensity in the anterior thecal space approximately measures 5 mm in maximum thickness and extends from the tip of the dens to superior endplate of C3 raises concern for acute/subacute subdural hemorrhage. The differential possibility includes inflammatory pannus if there is history of rheumatoid arthritis. Recommendation: MRI cervical spine with and without contrast for further assessment. 3. Ligament, spinal cord and or vascular abnormalities cannot be excluded on the basis of this examination. 4. Cervical spondylosis as detailed above. Findings discussed with ER physician Dr. Altamirano by phone at 2:50 AM on 02/26/2019. Signed by: Dr. She Maharaj M.D. on 02/26/2019 3:05 AM
--- NOTE | 2019-02-26 03:21 | Diagnostic Imaging Report ---
History: Fall Comparison studies: None Technique: Axial images were obtained through the lumbar spine from T12-S1. Coronal and sagittal images reconstructed from the axial data. Dose modulation, iterative reconstruction, and/or weight based adjustment of the mA/kV was utilized to reduce the radiation dose to as low as reasonably achievable. Intravenous contrast: None Findings: The usual 5 non-rib bearing lumbar vertebral bodies are present. Alignment: Normal lordosis. No scoliosis. 2 mm grade 1 retrolisthesis at L1-L2 and 3 mm grade 1 anterolisthesis at L4-L5. Soft tissues: Atherosclerotic calcification in abdominal aorta and its branches. Paraspinal muscles: Mild fatty atrophy of posterior paraspinal muscles at level L5 and S1. Sacroiliac joints: No degenerative changes. Vertebrae: Diffuse osseous demineralization. No fractures, infection or neoplasm. Degenerative changes: L1-L2: Mild degenerative disc disease. Disc bulge asymmetric to left in combination with thickened ligamentum flavum and facet arthrosis results in mild canal stenosis. Mild right foraminal stenosis. L2-L3: Mild degenerative disc disease. Disc bulge and bilateral facet arthrosis without significant canal stenosis. Mild right foraminal stenosis. L3-L4: Mild degenerative disc disease. Disc bulge in combination with thickened ligamentum flavum and bilateral advanced facet arthrosis results in mild canal stenosis. Mild right foraminal stenosis. L4-L5: Disc bulge in combination with thickened ligamentum flavum, grade 1 anterolisthesis and advanced proliferative bilateral facet arthrosis results in severe canal stenosis. Mild right foraminal stenosis. L5-S1: Mild degenerative disc disease. Disc bulge in combination with bilateral (left more than right) advanced facet arthrosis results in mild canal stenosis. Left hemilaminectomy. Moderate bilateral foraminal stenosis. IMPRESSION: 1. No acute lumbar spine fracture. 2. Grade 1 retrolisthesis at L1-L2 and anterolisthesis at L4-L5. 3. Multilevel lumbar spondylosis as detailed above. 4. Ligament, spinal cord and or vascular abnormalities cannot be excluded on the basis of this examination. Signed by: Dr. She Maharaj M.D. on 02/26/2019 3:18 AM
--- NOTE | 2019-02-26 04:40 | NUR ---
0330: Pt reluctant to be trasferred at this time. States concerns d/t not having with her and that he will not be able to make it to transferring facility. States that she would like to wait until Wednesday and follow up with her doctor. 0345: Dr. Altamirano at bedside talking with pt about risks of leaving and waiting for transfer. Pt is alert and oriented x4; speech is clear. States that she understands risks and still wants to leave. 0400: [employer] supervisor, Jennifer, speaking with pt about transfer. Pt states that she will consent to transfer if her can come with her. 0420: Pt's states that he will be able to find transport to this facility to accompany pt in ambulance during transfer. States it will be approx 1 hour before he can be here. Pt is agreeable with this plan of care at this time. No acute distress noted. Remains alert and oriented x4.
[2019-02-26 05:27] LABS: BASOPHILS % 0.3 % (0.0-1.0); EOSINOPHILS # (AUTO) 0.1 (0.0-0.4); EOSINOPHILS % 0.9 % (0.0-6.0); HEMOGLOBIN 13.8 g/dL (12.0-16.0); LYMPHOCYTES # (AUTO) 1.4 (1.0-3.2); LYMPHOCYTES % 18.2 % (18.0-39.1); MEAN CORPUSCULAR HEMOGLOBIN 29.2 pg (28-32); MEAN CORPUSCULAR HGB CONC 32.9 g/dL (31-35); MONOCYTES # (AUTO) 0.4 (0.2-0.8); MONOCYTES % 5.7 % (4.4-11.3); NEUTROPHILS # (AUTO) 5.8 (2.1-6.9); NEUTROPHILS % 74.4 % (38.7-80.0); PLATELET COUNT 205 x10e3/uL (140-360); RED BLOOD COUNT 4.72 x10e6/uL (3.6-5.1); RED CELL DISTRIBUTION WIDTH 13.3 % (11.7-14.4)
[2019-02-26 05:28] LABS: INR 0.97; PROTHROMBIN TIME 13.4 seconds (11.9-14.5)
[2019-02-26 05:29] LABS: PARTIAL THROMBOPLASTIN TIME 36.5 seconds (23.8-35.5)
--- NOTE | 2019-02-26 05:29 | NUR ---
Pt's and son are at bedside at this time. route sales delivery drivers supervisor states EMS transport is approx 45 minutes away. Pt and family updated on POC and verbalizes consent.
[2019-02-26 05:34] LABS: ALANINE AMINOTRANSFERASE 19 IU/L (0-55); ALBUMIN 3.9 g/dL (3.5-5.0); ALBUMIN/GLOBULIN RATIO 1.1 (0.8-2.0); ALKALINE PHOSPHATASE 83 IU/L (40-150); ANION GAP 14.5 mmol/L (8-16); BLOOD UREA NITROGEN 17 mg/dL (7-26); BUN/CREATININE RATIO 20 (6-25); CALCIUM 9.8 mg/dL (8.4-10.2); CARBON DIOXIDE 25 mmol/L (22-29); CHLORIDE 106 mmol/L (98-107); CREATINE KINASE 123 IU/L (29-168); CREATININE, SERUM 0.85 mg/dL (0.57-1.11); EST GLOMERULAR FILTRATION RATE > 60 ML/MIN (60-); GLUCOSE 123 mg/dL (74-118); POTASSIUM 3.5 mmol/L (3.5-5.1); SODIUM 142 mmol/L (136-145)
[2019-02-26 06:45] VITALS: BP 145/69
== END 2019-02-26 06:50 | disposition other institution (70) ==
LOC: ER 00:33
DX: S06.5X0A Traumatic subdural hemorrhage without loss of consciousness, initial encounter (principal); R55 Syncope and collapse; R42 Dizziness and giddiness; M54.5 Low back pain; W01.0XXA Fall on same level from slipping, tripping and stumbling without subsequent striking against object, initial encounter; Y92.008 Other place in unspecified non-institutional (private) residence as the place of occurrence of the external cause; I10 Essential (primary) hypertension; K21.9 Gastro-esophageal reflux disease without esophagitis; F25.9 Schizoaffective disorder, unspecified
CPT/HCPCS: 36415; 70450; 72125; 72131; 80053; 81001; 82550; 82553; 84484; 85025; 85610; 85730; 87086; 93005; 99285

== ENCOUNTER 2020-09-03 16:44 | Emergency (ER) | payer MEDICARE, OTHER ==
[~2020-09-03] VITALS: Ht 165.1 cm; Wt 71.8 kg
[2020-09-03] MEDS ORDERED: GABAPENTIN100 MG PO (18:31)
== END 2020-09-03 18:50 | disposition home or self-care (01) ==
LOC: FSED 16:55
DX: M54.5 Low back pain (principal); M79.605 Pain in left leg; M79.604 Pain in right leg; I10 Essential (primary) hypertension; K21.9 Gastro-esophageal reflux disease without esophagitis; F25.9 Schizoaffective disorder, unspecified; F41.9 Anxiety disorder, unspecified; Z98.0 Intestinal bypass and anastomosis status
CPT/HCPCS: 99282

== ENCOUNTER 2022-05-03 17:46 | Emergency (ER) | payer MEDICARE, OTHER ==
[~2022-05-03] VITALS: Ht 165.1 cm; Wt 71.7 kg
[~2022-05-03 17:46] MED LIST changes: +GABAPENTIN100 MG PO
[2022-05-03] MEDS ORDERED: METHOCARBAMOL750 MG PO (18:57)
[2022-05-03] MEDS ORDERED: MEDROL4 M2 PO (18:57)
[2022-05-03] MEDS ORDERED: DEXAMETHASONE SOD PHOS 10 MG/1 ML VIAL IM ONE (19:00)
[2022-05-03] MEDS ORDERED: DEXAMETHASONE SOD PHOS 10 MG/1 ML VIAL ONE (19:04)
== END 2022-05-03 19:00 | disposition home or self-care (01) ==
LOC: ER 18:03
DX: M54.42 Lumbago with sciatica, left side (principal); I10 Essential (primary) hypertension; F41.9 Anxiety disorder, unspecified; K21.9 Gastro-esophageal reflux disease without esophagitis; F25.9 Schizoaffective disorder, unspecified
CPT/HCPCS: 99282; J1100

== ENCOUNTER → 2023-12-23 | Outpatient (REF) | payer MEDICARE ==
[~2023-12-23] MED LIST changes: +AMLODIPINE BESY10 MG PO; +BENZONATATE100 MG PO; +CEPHALEXIN500 MG PO; +Docusate Sodium PO; +LOPRESSOR25 MG PO; +LORATADINE10 MG PO; +MEDROL4 M2 PO; +MYRBETRIQ50 MG; +ONDANSETRON ODT4 MG PO; +SENOKOT8.6 MG PO; +ZITHROMAX500 MG PO
== END ==
LOC: RAD 14:54
PROVIDERS: ATTEND Physical Medicine & Rehabilitation Pain Medicine
DX: M54.12 Radiculopathy, cervical region (principal)
CPT/HCPCS: 72050